=== PATIENT | female | born 1990 | race Two or more races ===

== ENCOUNTER 2016-08-13 12:02 | Emergency (ER) | payer MEDICAID ==
[~2016-08-13] VITALS: Ht 154.9 cm; Wt 67.1 kg
[~2016-08-13 12:02] MED LIST: NORPTMEDS CO
[2016-08-13 12:25] VITALS: BP 116/58
[2016-08-13] MEDS ORDERED: KETOROLAC TROMETH 60MG/2ML VIAL IM ONE (15:30)
== END 2016-08-13 16:06 | disposition home or self-care (01) ==
LOC: ER 12:15
DX: J01.10 Acute frontal sinusitis, unspecified (principal); Z87.440 Personal history of urinary (tract) infections
CPT/HCPCS: 96372; 99283; J1885

== ENCOUNTER 2016-08-27 11:28 | Emergency (ER) | payer MEDICAID ==
[~2016-08-27] VITALS: Ht 154.9 cm; Wt 68.0 kg
[2016-08-27 15:08] VITALS: BP 108/72
[2016-08-27] MEDS ORDERED: KETOROLAC TROMETH 60MG/2ML VIAL IM ONE (15:30)
== END 2016-08-27 16:02 | disposition home or self-care (01) ==
LOC: ER 11:28
DX: G44.209 Tension-type headache, unspecified, not intractable (principal)
CPT/HCPCS: 70450; 96372; 99284; J1885

== ENCOUNTER 2017-04-18 11:26 | Emergency (ER) | payer MEDICAID ==
[~2017-04-18] VITALS: Ht 154.9 cm; Wt 49.9 kg
[2017-04-18 12:26] VITALS: BP 118/74
== END 2017-04-18 14:29 | disposition home or self-care (01) ==
LOC: ER 11:26
DX: N64.4 Mastodynia (principal); Z79.899 Other long term (current) drug therapy; Z87.440 Personal history of urinary (tract) infections
CPT/HCPCS: 76642

== ENCOUNTER 2018-09-11 11:37 | Emergency (ER) | payer MEDICAID ==
[~2018-09-11] VITALS: Ht 154.9 cm; Wt 66.2 kg
[2018-09-11 12:30] LABS: Urine Bacteria NONE SEEN /hpf (None Seen); Urine Blood TRACE /uL (Negative); Urine Specific Gravity 1.023 (1.001-1.035); Urine WBC 4 /hpf (0 - 5)
[2018-09-11] MEDS ORDERED: KETOROLAC TROMETH 60MG/2ML VIAL IM ONE (15:45)
[2018-09-11] MEDS ORDERED: ONDANSETRON ODT 4 MG TAB PO ONE (15:45)
[2018-09-11 16:04] VITALS: BP 141/69
== END 2018-09-11 16:06 | disposition home or self-care (01) ==
LOC: ER 11:37
DX: N39.0 Urinary tract infection, site not specified (principal); Z87.11 Personal history of peptic ulcer disease; Z87.440 Personal history of urinary (tract) infections
CPT/HCPCS: 81001; 81025; 96372; 99283; J1885; Q0162

== ENCOUNTER 2019-06-12 12:06 | Emergency (ER) | payer MEDICAID ==
[2019-06-12 13:59] VITALS: BP 111/65
[2019-06-12] MEDS ORDERED: IBUPROFEN 800 MG TAB PO ONE (14:45)
[2019-06-12] MEDS ORDERED: KETOROLAC TROMETH 30 MG/ML 1ML VIAL IV ONE (14:45)
== END 2019-06-12 15:12 | disposition home or self-care (01) ==
LOC: ER 12:14
DX: K04.7 Periapical abscess without sinus (principal); Z87.440 Personal history of urinary (tract) infections

== ENCOUNTER 2021-06-16 18:08 | Emergency (ER) | payer MEDICAID ==
[~2021-06-16] VITALS: Ht 144.8 cm; Wt 75.3 kg
[2021-06-16 20:49] LABS: Urine Bacteria FEW /hpf (None Seen); Urine Blood TRACE /uL (Negative); Urine Specific Gravity 1.013 (1.001-1.035); Urine WBC 1 /hpf (0 - 5)
[2021-06-16 21:18] VITALS: BP 105/69
[2021-06-16] MEDS ORDERED: cefTRIAXone SOD 1,000 MG VL IM ONE (21:30)
[2021-06-16] MEDS ORDERED: KETOROLAC TROMETH 60MG/2ML VIAL IM ONE (21:30)
== END 2021-06-16 21:56 | disposition home or self-care (01) ==
LOC: ER 18:09
DX: N39.0 Urinary tract infection, site not specified (principal); E66.9 Obesity, unspecified; Z68.35 Body mass index [BMI] 35.0-35.9, adult
CPT/HCPCS: 81001; 96372; 99284; J0696; J1885

== ENCOUNTER 2022-09-11 15:55 | Emergency (ER) | payer MEDICAID ==
[~2022-09-11] VITALS: Ht 144.8 cm; Wt 81.0 kg
[2022-09-11 16:04] VITALS: BP 154/90
[2022-09-11] MEDS ORDERED: ONDANSETRON ODT 4 MG TAB PO ONE (16:15)
[2022-09-11] MEDS ORDERED: HYDROcodone-ACET 10/325MG TAB PO ONE (16:15)
[2022-09-11 16:22] LABS: Basophils # (auto) 0 10 ^3/uL (0-0.2); Basophils % (auto) 0.6 % (0.0-2.0); Eosinophils # (auto) 0.1 10 ^3/uL (0-0.8); Eosinophils % (auto) 1.2 % (0.0-7.0); Hematocrit 39.3 % (36.0-46.0); Hemoglobin 13.9 g/dL (12.2-16.2); Lymphocytes # (auto) 2.4 10 ^3/uL (0.4-5.4); Lymphocytes % (auto) 34.6 % (10.0-50.0); Mean Corpuscular Hemoglobin 29.9 pg (28.0-32.0); Mean Corpuscular Hgb Conc. 35.3 g/dL (32.0-36.0); Mean Corpuscular Volume 84.7 fL (80.0-100.0); Monocytes # (auto) 0.4 10 ^3/uL (0-1.3); Monocytes % (auto) 5.8 % (0.0-12.0); Neutrophils # (auto) 4.1 10 ^3/uL (1.6-8.6); Neutrophils % (auto) 57.8 % (37.0-80.0); Nucleated Red Blood Cells % 0.1 %; Red Blood Cells 4.64 10^6/uL (4.0-5.20); Red Cell Distribution Width 14.1 % (11.8-14.3)
[2022-09-11 16:43] LABS: Albumin 3.8 g/dL (3.4-5.0); BUN/Creatinine Ratio 21.8; Calcium 8.9 mg/dL (8.5-10.1); Potassium 3.5 mmol/L (3.5-5.1)
[2022-09-11 16:45] LABS: Bilirubin, Total 0.4 mg/dL (0.2-1.0); Total Protein 7.3 g/dL (6.4-8.2)
[2022-09-11 17:03] LABS: Urine Bacteria NONE SEEN /hpf (None Seen); Urine Blood 2+ /uL (Negative); Urine WBC 5 /hpf (0 - 5)
[2022-09-11] MEDS ORDERED: HYDR-4902 PO (21:21)
== END 2022-09-11 22:51 | disposition home or self-care (01) ==
LOC: ER 15:56
DX: R10.31 Right lower quadrant pain (principal); R10.2 Pelvic and perineal pain
CPT/HCPCS: 36415; 74176; 76830; 76856; 80053; 81001; 83690; 84702; 85025; 99284; Q0162

== ENCOUNTER 2025-04-02 14:13 | Inpatient (IN) | payer MEDICAID ==
[~2025-04-02] VITALS: Ht 144.8 cm; Wt 84.5 kg
[~2025-04-02 14:13] MED LIST changes: +HYDR-4902 PO
--- NOTE | 2025-04-02 14:53 | ED.PDOC ---
General HPI Comments 34y F who presents to the ED for chief complaint of flank pain. Pt states she was at urologist appt today with DR. RAGSDALE at and states she was told to come to the ED to be admitted for her kidney stones. Pt states she was told she is to have surgery for her kidney stones. Pt in the ED, states she has been having this pain for the past 2x days and went to [facility], on Tuesday and had CT scan showing R sided kidney stones and given outpatient referral for urologist today. Pt now in the ED, states she is having RLQ pain with associated back pain, rating the pain 8/10, constant, with no associated exacerbating or relieving factors. Pt in the ED, has noted BP of 147/88 with otherwise stable vitals in the ED. Chief Complaint: Urinary Time Seen by MD: 14:50 Primary Care Provider: [facility] Reviewed notes: Medications, Allergies Allergies: Coded Allergies: NO KNOWN ALLERGIES (Unverified , 06/09/13) Home Meds Active Scripts Hydrocodone-Acetaminophen (Hydrocodone Bitartrate/AC 5-325 mg) 1 Tab Tab, 1 TAB PO Q6HP PRN, #20 TAB Prov:GEN BLANCO PAC 09/11/22 Reported Medications No Reported Medication (NO REPORTED MEDICATION) Ea, 0 CO UNK, EA PATIENT HAS NO REPORTED MEDICATIONS 06/09/13 Information Source: Patient Mode of Arrival: Ambulatory Brought in by: self Severity: Moderate Timing: Days Duration: Since onset Prehospital treatment: None Onset: Spontaneous Symptoms: None History of: Kidney stone Location: Suprapubic, (R) Flank Modifying factors: None associated signs and symptoms: None Past Medical History PAST MEDICAL HISTORY: Kidney Stones, UTI'S Past Medical History (Other): adenomyosis Surgical History: Denies all surgeries CAT BREEDER History: No Pertinent CAT BREEDER History Family History Family History: Reviewed,noncontributory to illness, No family hx of DM Social History Smoker: Non-Smoker Alcohol: Denies ETOH Use Drugs: Denies Drug Use Lives In: Home Constitutional: denies: chills, diaphoresis, fatigue, fever, malaise, sweats, weakness, others EENTM: denies: blurred vision, double vision, ear bleeding, ear discharge, ear drainage, ear pain, ear ringing, eye pain, eye redness, hearing loss, mouth pain, mouth swelling, nasal discharge, nose bleeding, nose congestion, nose pain, photophobia, tearing, throat pain, throat swelling, voice changes, others Respiratory: denies: cough, hemoptysis, orthopnea, SOB at rest, shortness of breath, SOB with excertion, stridor, wheezing, others Cardiovascular: denies: chest pain, dizzy spells, diaphoresis, Dyspnea on exertion, edema, irregular heart beat, left arm pain, lightheadedness, palpitations, PND, syncope, others Gastrointestinal: denies: abdomen distended, abdominal pain, blood streaked bowels, constipated, diarrhea, dysphagia, difficulty swallowing, hematemesis, melena, nausea, poor appetite, poor fluid intake, rectal bleeding, rectal pain, vomiting, others Genitourinary: reports: flank pain; denies: abnormal vagina bleeding, burning, dyspareunia, dysuria, frequency, hematuria, incontinence, pain, , vagina discharge, urgency, others Neurological: denies: dizziness, fainting, headache, left sided numbness, left sided weakness, numbness, paresthesia, pre-existing deficit, right sided numbness, right sided weakness, seizure, speech problems, tingling, tremors, weakness, others Musculoskeletal: reports: back pain; denies: gout, joint pain, joint swelling, muscle pain, muscle stiffness, neck pain, others Integumetry: denies: bruises, change in color, change in hair/nails, dryness, laceration, lesions, lumps, rash, wounds, others Allergic/Immunocompromised: denies: Difficulty Healing, Frequent Infections, Hives, Itching, others Hematologic/Lymphatic: denies: anemia, blood clots, easy bleeding, easy bruising, swollen glands, others Endocrine: denies: excessive hunger, excessive sweating, excessive thirst, excessive urination, flushing, intolerance to cold, intolerance to heat, unexplained weight gain, unexplained weight loss, others Psychiatric: denies: anxiety, bipolar disorder, depression, hopeless, panic disorder, schizophrenia, sleepless, suicidal, others All Other Systems: Reviewed and Negative Physical Exam General Appearance: Moderate Distress, Obese HEENT: Normal ENT Inspection, Pharynx Normal, TMs Normal Neck: Full Range of Motion, Non-Tender, Normal, Normal Inspection Respiratory: Chest Non-Tender, Lungs Clear, No Accessory Muscle Use, No Respiratory Distress, Normal Breath Sounds Cardiovascular: No Edema, No JVD, No Murmur, No Gallop, Normal Peripheral Pulses, Regular Rate/Rhythm Breast Exam: Deferred Gastrointestinal: No Organomegaly, Non Tender, No Pulsatile Mass, Normal Bowel Sounds, Soft Genitalia: Deferred Pelvic: Deferred Rectal: Deferred Extremities: No calf tenderness, Normal capillary refill, Normal inspection, Normal range of motion, Non-tender, No pedal edema Musculoskeletal : Apperance: Normal Neurologic: Alert, personal secretary II-XII nml as Tested, No Motor Deficits, Normal Affect, Normal Mood, No Sensory Deficits Cerebellar Function: Normal Reflexes: Normal Skin: Dry, Normal Color, Warm Lymphatic: No Adenopathy Was a procedure done? Was a procedure done?: No Differential Diagnosis Kidney stone (Female): Cholelithiasis, Musculoskeletal pain, Pyelonephritis, Strain, Urolithiasis Urinary Problem (Female): Pyelonephritis X-Ray, Labs, Meds, VS Vital Signs Date Time Temp Pulse Resp B/P (MAP) Pulse Ox O2 Delivery O2 Flow Rate FiO2 04/02/25 14:59 78 20 117/74 04/02/25 14:56 74 18 117/76 (90) 100 04/02/25 14:56 74 18 97 Room Air 04/02/25 14:18 97.9 74 18 147/88 96 97.9 Lab Test 04/02/25 14:50 04/02/25 14:39 Range/Units White Blood Count 8.7 4.4-10.8 10^3/uL Red Blood Count 4.63 4.0-5.20 10^6/uL Hemoglobin 13.5 12.2-16.2 g/dL Hematocrit 39.7 36.0-46.0 % Mean Corpuscular Volume 85.8 80.0-100.0 fL Mean Corpuscular Hemoglobin 29.1 28.0-32.0 pg Mean Corpuscular Hemoglobin Concent 33.9 32.0-36.0 g/dL Red Cell Distribution Width 14.1 11.8-14.3 % Platelet Count 438 140-450 10^3/uL Mean Platelet Volume 6.7 L 6.9-10.8 fL Neutrophils (%) (Auto) 59.2 37.0-80.0 % Lymphocytes (%) (Auto) 34.0 10.0-50.0 % Monocytes (%) (Auto) 4.8 0.0-12.0 % Eosinophils (%) (Auto) 1.6 0.0-7.0 % Basophils (%) (Auto) 0.4 0.0-2.0 % Neutrophils # (Auto) 5.1 1.6-8.6 10 ^3/uL Lymphocytes # (Auto) 2.9 0.4-5.4 10 ^3/uL Monocytes # (Auto) 0.4 0-1.3 10 ^3/uL Eosinophils # (Auto) 0.1 0-0.8 10 ^3/uL Basophils # (Auto) 0 0-0.2 10 ^3/uL Nucleated Red Blood Cells 0.1 % Sodium Level 138 136-145 mmol/L Potassium Level 3.7 3.5-5.1 mmol/L Chloride Level 102 98-107 mmol/L Carbon Dioxide Level 29 20-31 mmol/L Anion Gap 7 5-15 Blood Urea Nitrogen 7 L 9-23 mg/dL Creatinine 0.63 0.550-1.02 mg/dL Glomerular Filtration Rate Calc 119 >90 mL/min BUN/Creatinine Ratio 11.1 10.0-20.0 Serum Glucose 110 H 74-106 mg/dL Calcium Level 9.2 8.7-10.4 mg/dL Urine Color Light-yellow Yellow Urine Clarity Clear Clear Urine pH 5.5 5.0-9.0 Urine Specific [place] 1.019 1.001-1.035 Urine Protein Negative Negative Urine Ketones Negative Negative Urine Blood Trace H Negative /uL Urine Nitrite Negative Negative Urine Bilirubin Negative Negative Urine Urobilinogen Normal Negative mg/dL Urine Leukocyte Esterase Trace Negative /uL Urine RBC 11 0 - 4 /hpf Urine Microscopic WBC 4 0-5 /HPF Urine Squamous Epithelial Cells Few <5 /hpf Urine Bacteria Few H None Seen /hpf Urine Glucose Normal Normal mg/dL Urine Test Negative Negative Current Medications Medications (Trade) Dose Ordered Sig/Parish Route Start Time Stop Time Status Last Admin Ondansetron HCl (Zofran) 4 mg ONCE ONCE IV 04/02/25 14:45 04/02/25 14:46 DC 04/02/25 15:01 Sodium Chloride 1,000 ml @ 1,000 mls/hr Q1H ONCE IVB 04/02/25 14:45 04/02/25 15:44 DC 04/02/25 15:01 Morphine Sulfate 4 mg ONCE ONCE IV 04/02/25 14:45 04/02/25 14:46 DC 04/02/25 14:59 IV Hep-Lock was established The patient was given a 1 L bolus of normal saline The patient was given Zofran 4 mg IV push for the vomiting The patient was given morphine 4 mg IV push with the pain The urine test is positive for a UTI The patient has a CBC is within normal limits The chemistry panel is within normal limits The CAT scan of the abdomen and pelvis shows: IMPRESSION: Limited evaluation without contrast. Nonobstructing right renal calculi up to 2 mm. Gastric distention. Hepatic steatosis. Bilateral pulmonary ground-glass nodules/ nodules up to 1.8 cm as described above which could be secondary to infectious, inflammatory, neoplastic etiology. Recommend follow-up per Fleischner society criteria guidelines. Colonic diverticular disease. At this time the patient will be admitted to the hospitalist. We have consulted with Dr. Landry who is a urologist in the patient is being admitted Images Reviewed?: Images reviewed and evaluated by me Time of 1ST Reevaluation: 15:30 Reevaluation 1ST: Unchanged Patient Education/Counseling: Diagnosis, Treatment Family Education/Counseling: No Family Present SEPSIS Sepsis Screen Date sepsis recognized/suspect: Apr 02, 2025 Time Sepsis recognized/suspect: 1423 Recent Procedure: No On Antibiotic Therapy: No Respiratory Rate >20: No Heart Rate >90: No Temp<36 C (96.8 F) or >38.3 C: No SBP <90 or MAP <65 mmHG: No New Acute Mental Status Change: No Is the patient on CPAP, BIPAP,: No Physician Orders Ct Ab Pel Wo Con-No Oral Or Iv (04/02/25 14:39) Heplock Iv (04/02/25 14:39) Vital Signs Date Time Temp Pulse Resp B/P (MAP) Pulse Ox O2 Delivery O2 Flow Rate FiO2 04/02/25 14:59 78 20 117/74 04/02/25 14:56 74 18 117/76 (90) 100 04/02/25 14:56 74 18 97 Room Air 04/02/25 14:18 97.9 74 18 147/88 96 97.9 Laboratory Tests Test 04/02/25 14:50 White Blood Count 8.7 10^3/uL (4.4-10.8) Medications Medications Dose Ordered Sig/Parish Route Start Time Stop Time Status Last Admin Dose Admin Morphine Sulfate 4 mg ONCE ONCE IV 04/02/25 14:45 04/02/25 14:46 DC 04/02/25 14:59 Ondansetron HCl 4 mg ONCE ONCE IV 04/02/25 14:45 04/02/25 14:46 DC 04/02/25 15:01 Sodium Chloride 1,000 ml @ 1,000 mls/hr Q1H ONCE IVB 04/02/25 14:45 04/02/25 15:44 DC 04/02/25 15:01 Departure 1 Departure Time of Disposition: 18:45 Impression: Primary Impression: UTI (urinary tract infection) Qualified Codes: N30.01 - Acute cystitis with hematuria Additional Impression: Right flank pain Disposition: ADMITTED INPATIENT Admit to: Med Surg Condition: Fair Critical Care Note Critical Care Time?: No Stability Stability form required: Yes Unstable for transfer: ED Physician Assesment (Clinical assesment) Heart Score Heart Score: Heart Score Response (Comments) Value History N/A 0 EKG N/A 0 Age N/A 0 Risk Factors N/A 0 Troponin N/A 0 Total 0 I personally scribed for ALONZO CAMPOS MD ([email or web address]) on 04/02/25 at 14:52. Electronically submitted by Beatris COVINGTON). ALONZO CAMPOS MD Apr 02, 2025 14:52
[2025-04-02 14:58] LABS: Hematocrit 39.7 % (36.0-46.0); Hemoglobin 13.5 g/dL (12.2-16.2); Mean Corpuscular Hemoglobin 29.1 pg (28.0-32.0); Mean Corpuscular Volume 85.8 fL (80.0-100.0); Nucleated Red Blood Cells % 0.1 %
[2025-04-02] MEDS: MORPHINE SULFATE 4 MG/ML SYR/VIAL IV ONE (14:59)
[2025-04-02] MEDS: SODIUM CHLORIDE 0.9% 1,000 ML IVB ONE (15:01)
[2025-04-02] MEDS: ONDANSETRON HCL 4 MG/2 ML VIAL IV ONE (15:01)
[2025-04-02 15:08] LABS: Chloride 102 mmol/L (98-107); Potassium 3.7 mmol/L (3.5-5.1); Sodium 138 mmol/L (136-145)
[2025-04-02 15:09] LABS: Anion Gap 7 (5-15); Calcium 9.2 mg/dL (8.7-10.4); Carbon Dioxide 29 mmol/L (20-31)
[2025-04-02 15:14] LABS: BUN/Creatinine Ratio 11.1 (10.0-20.0)
[2025-04-02 15:15] LABS: Blood Urea Nitrogen 7 mg/dL (9-23); Glucose 110 mg/dL (74-106)
[2025-04-02 17:15] LABS: Urine Protein, UAD Negative (Negative)
--- NOTE | 2025-04-02 18:18 | DVH ---
Indication: right flank pain Technique: CT axial images of the abdomen and pelvis are obtained without contrast. Coronal and sagit surya reformats were obtained. Radiation Dose Information: CTDI volume is 18 mGy. Dose-length product is 929 mGy*cm Comparison: CT CT AB PEL WO CON-NO ORAL OR IV on DOS: 09/11/22 FINDINGS: There is limited interpretation of the abdomen and pelvis without administration of intravenous contr ast. Lung bases demonstrate bilateral pulmonary ground-glass nodules including 9 mm right lower lobe groun d-glass opacity, 11 mm right lower lobe ground-glass opacity, 1.8 cm right lower lobe sub solid nodul e, left lower lobe ground-glass nodule measuring 5 mm. Adrenal glands, spleen, pancreas unremarkable in shape. Hepatic steatosis. No CT evidence for cholel ithiasis. No hydronephrosis. Nonobstructing right renal calculi 2 mm. No left hydronephrosis/nephrolithiasis. Gastric distention. Small bowel loops normal in caliber. Moderate volume stool in the colon. Normal appendix. Bladder is partially distended. No free pelvic fluid. No inguinal lymphadenopathy. No aggressive osseous process. There is mild thoracolumbar degenerative disc disease. IMPRESSION: Limited evaluation without contrast. Nonobstructing right renal calculi up to 2 mm. Gastric distention. Hepatic steatosis. Bilateral pulmonary ground-glass nodules/ nodules up to 1.8 cm as described above which could be seco ndary to infectious, inflammatory, neoplastic etiology. Recommend follow-up per Fleischner society c r[place] guidelines. Colonic diverticular disease. Other findings as described.
--- NOTE | 2025-04-02 19:50 | DVHINCON2 ---
Date of service: Apr 02, [address] Galarza Reason for Consultation Right flank pain History of Present Illness Patient was seen in Urology Clinic earlier today at the request of Dr. Galarza for severe right-sided flank pain. She was evaluated Tuesday at [facility] for right-sided flank pain and was told to have a ureteral calculus that she was passing. She indicated her pain to be a level eight on a scale of 1-10. Therefore I recommended that she be evaluated through emergency room and be admitted for definitive urological management. 34y F who presents to the ED for chief complaint of flank pain. Pt states she was at urologist appt today with DR. RAGSDALE at and states she was told to come to the ED to be admitted for her kidney stones. Pt states she was told she is to have surgery for her kidney stones. Pt in the ED, states she has been having this pain for the past 2x days and went to [facility], on Tuesday and had CT scan showing R sided kidney stones and given outpatient referral for urologist today. Pt now in the ED, states she is having RLQ pain with associated back pain, rating the pain 8/10, constant, with no associated exacerbating or relieving factors. Pt in the ED, has noted BP of 147/88 with otherwise stable vitals in the ED. Chief Complaint: Urinary Primary Care Provider: [facility] Reviewed notes: Medications, Allergies Allergies: Coded Allergies: NO KNOWN ALLERGIES (Unverified , 06/09/13) Home Meds Active Scripts Hydrocodone-Acetaminophen (Hydrocodone Bitartrate/AC 5-325 mg) 1 Tab Tab, 1 TAB PO Q6HP PRN, #20 TAB Prov:GEN BLANCO PAC 09/11/22 Reported Medications No Reported Medication (NO REPORTED MEDICATION) Ea, 0 CO UNK, EA PATIENT HAS NO REPORTED MEDICATIONS 06/09/13 Information Source: Patient Mode of Arrival: Ambulatory Brought in by: self Severity: Moderate Timing: Days Duration: Since onset Prehospital treatment: None Onset: Spontaneous Symptoms: None History of: Kidney stone Location: Suprapubic, (R) Flank Modifying factors: None associated signs and symptoms: None Past Medical History Kidney stones Endometriosis Past Surgical History Laparoscopy Allergies: Coded Allergies: NO KNOWN ALLERGIES (Unverified , 06/09/13) Home Meds Active Scripts Hydrocodone-Acetaminophen (Hydrocodone Bitartrate/AC 5-325 mg) 1 Tab Tab, 1 TAB PO Q6HP PRN, #20 TAB Prov:GEN BLANCO PAC 09/11/22 Reported Medications No Reported Medication (NO REPORTED MEDICATION) Ea, 0 CO UNK, EA PATIENT HAS NO REPORTED MEDICATIONS 06/09/13 Review of Systems Constitutional: denies: chills, diaphoresis, fatigue, fever, malaise, sweats, weakness, others EENTM: denies: blurred vision, double vision, ear bleeding, ear discharge, ear drainage, ear pain, ear ringing, eye pain, eye redness, hearing loss, mouth pain, mouth swelling, nasal discharge, nose bleeding, nose congestion, nose pain, photophobia, tearing, throat pain, throat swelling, voice changes, others Respiratory: denies: cough, hemoptysis, orthopnea, SOB at rest, shortness of breath, SOB with excertion, stridor, wheezing, others Cardiovascular: denies: chest pain, dizzy spells, diaphoresis, Dyspnea on exertion, edema, irregular heart beat, left arm pain, lightheadedness, palpitations, PND, syncope, others Gastrointestinal: denies: abdomen distended, abdominal pain, blood streaked bowels, constipated, diarrhea, dysphagia, difficulty swallowing, hematemesis, melena, nausea, poor appetite, poor fluid intake, rectal bleeding, rectal pain, vomiting, others Genitourinary: reports: flank pain; denies: abnormal vagina bleeding, burning, dyspareunia, dysuria, frequency, hematuria, incontinence, pain, , vagina discharge, urgency, others Neurological: denies: dizziness, fainting, headache, left sided numbness, left sided weakness, numbness, paresthesia, pre-existing deficit, right sided numbness, right sided weakness, seizure, speech problems, tingling, tremors, weakness, others Musculoskeletal: reports: back pain; denies: gout, joint pain, joint swelling, muscle pain, muscle stiffness, neck pain, others Integumetry: denies: bruises, change in color, change in hair/nails, dryness, laceration, lesions, lumps, rash, wounds, others Allergic/Immunocompromised: denies: Difficulty Healing, Frequent Infections, Hives, Itching, others Hematologic/Lymphatic: denies: anemia, blood clots, easy bleeding, easy bruising, swollen glands, others Endocrine: denies: excessive hunger, excessive sweating, excessive thirst, excessive urination, flushing, intolerance to cold, intolerance to heat, unexplained weight gain, unexplained weight loss, others Psychiatric: denies: anxiety, bipolar disorder, depression, hopeless, panic disorder, schizophrenia, sleepless, suicidal, others All Other Systems: Reviewed and Negative Vital Signs Vital Signs Date Time Temp Pulse Resp B/P (MAP) Pulse Ox O2 Delivery O2 Flow Rate FiO2 04/02/25 14:59 78 20 117/74 04/02/25 14:56 100 04/02/25 14:56 Room Air 04/02/25 14:18 97.9 97.9 Physical Exam General Appearance: Moderate Distress, Obese HEENT: Normal ENT Inspection, Pharynx Normal, TMs Normal Neck: Full Range of Motion, Non-Tender, Normal, Normal Inspection Respiratory: Chest Non-Tender, Lungs Clear, No Accessory Muscle Use, No Respiratory Distress, Normal Breath Sounds Cardiovascular: No Edema, No JVD, No Murmur, No Gallop, Normal Peripheral Pulses, Regular Rate/Rhythm Breast Exam: Deferred Gastrointestinal: No Organomegaly, Non Tender, No Pulsatile Mass, Normal Bowel Sounds, Soft Genitalia: Deferred Pelvic: Deferred Rectal: Deferred Extremities: No calf tenderness, Normal capillary refill, Normal inspection, Normal range of motion, Non-tender, No pedal edema Musculoskeletal : Apperance: Normal Neurologic: Alert, staff midwife/apprenticeship director II-XII nml as Tested, No Motor Deficits, Normal Affect, Normal Mood, No Sensory Deficits Cerebellar Function: Normal Reflexes: Normal Skin: Dry, Normal Color, Warm Lymphatic: No Adenopathy Labs/Diagnostic Data Labs Test 04/02/25 14:50 04/02/25 14:39 Range/Units White Blood Count 8.7 4.4-10.8 10^3/uL Red Blood Count 4.63 4.0-5.20 10^6/uL Hemoglobin 13.5 12.2-16.2 g/dL Hematocrit 39.7 36.0-46.0 % Mean Corpuscular Volume 85.8 80.0-100.0 fL Mean Corpuscular Hemoglobin 29.1 28.0-32.0 pg Mean Corpuscular Hemoglobin Concent 33.9 32.0-36.0 g/dL Red Cell Distribution Width 14.1 11.8-14.3 % Platelet Count 438 140-450 10^3/uL Mean Platelet Volume 6.7 L 6.9-10.8 fL Neutrophils (%) (Auto) 59.2 37.0-80.0 % Lymphocytes (%) (Auto) 34.0 10.0-50.0 % Monocytes (%) (Auto) 4.8 0.0-12.0 % Eosinophils (%) (Auto) 1.6 0.0-7.0 % Basophils (%) (Auto) 0.4 0.0-2.0 % Neutrophils # (Auto) 5.1 1.6-8.6 10 ^3/uL Lymphocytes # (Auto) 2.9 0.4-5.4 10 ^3/uL Monocytes # (Auto) 0.4 0-1.3 10 ^3/uL Eosinophils # (Auto) 0.1 0-0.8 10 ^3/uL Basophils # (Auto) 0 0-0.2 10 ^3/uL Nucleated Red Blood Cells 0.1 % Sodium Level 138 136-145 mmol/L Potassium Level 3.7 3.5-5.1 mmol/L Chloride Level 102 98-107 mmol/L Carbon Dioxide Level 29 20-31 mmol/L Anion Gap 7 5-15 Blood Urea Nitrogen 7 L 9-23 mg/dL Creatinine 0.63 0.550-1.02 mg/dL Glomerular Filtration Rate Calc 119 >90 mL/min BUN/Creatinine Ratio 11.1 10.0-20.0 Serum Glucose 110 H 74-106 mg/dL Calcium Level 9.2 8.7-10.4 mg/dL Urine Color Light-yellow Yellow Urine Clarity Clear Clear Urine pH 5.5 5.0-9.0 Urine Specific [place] 1.019 1.001-1.035 Urine Protein Negative Negative Urine Ketones Negative Negative Urine Blood Trace H Negative /uL Urine Nitrite Negative Negative Urine Bilirubin Negative Negative Urine Urobilinogen Normal Negative mg/dL Urine Leukocyte Esterase Trace Negative /uL Urine RBC 11 0 - 4 /hpf Urine Microscopic WBC 4 0-5 /HPF Urine Squamous Epithelial Cells Few <5 /hpf Urine Bacteria Few H None Seen /hpf Urine Glucose Normal Normal mg/dL Urine Test Negative Negative PATIENT: ARACELI MURILLO ACCT: [id number] UNIT: [id number] : 1990 LOC: ER ROOM / BED: / AGE / SEX: 34 / F ADM STATUS: REG ER SERVICE [id number] ORDERING PHYSICIAN: ALONZO CAMPOS MD PROCEDURE(s): ABPL - CT AB PEL WO CON-NO ORAL OR IV REASON: right flank pain ORDER NUMBER(s): [id number], ACCESSION NUMBER(s): [id number] Indication: right flank pain Technique: CT axial images of the abdomen and pelvis are obtained without contrast. Coronal and sagittal reformats were obtained. Radiation Dose Information: CTDI volume is 18 mGy. Dose-length product is 929 mGy*cm Comparison: CT CT AB PEL WO CON-NO ORAL OR IV on DOS: 09/11/22 FINDINGS: There is limited interpretation of the abdomen and pelvis without administration of intravenous contrast. Lung bases demonstrate bilateral pulmonary ground-glass nodules including 9 mm right lower lobe ground-glass opacity, 11 mm right lower lobe ground-glass opacity, 1.8 cm right lower lobe sub solid nodule, left lower lobe ground-glass nodule measuring 5 mm. Adrenal glands, spleen, pancreas unremarkable in shape. Hepatic steatosis. No CT evidence for cholelithiasis. No hydronephrosis. Nonobstructing right renal calculi 2 mm. No left hydronephrosis/nephrolithiasis. Gastric distention. Small bowel loops normal in caliber. Moderate volume stool in the colon. Normal appendix. Bladder is partially distended. No free pelvic fluid. No inguinal lymphadenopathy. No aggressive osseous process. There is mild thoracolumbar degenerative disc disease. IMPRESSION: Limited evaluation without contrast. Nonobstructing right renal calculi up to 2 mm. Gastric distention. Hepatic steatosis. Bilateral pulmonary ground-glass nodules/ nodules up to 1.8 cm as described above which could be secondary to infectious, inflammatory, neoplastic etiology. Recommend follow-up per Fleischner society criteria guidelines. Colonic diverticular disease. Other findings as described. ATED BY: MILDRED MONTANEZ MD DICTATED DATE/TIME: 04/02/251818 SIGNED BY: MILDRED MONTANEZ MD SIGNED DATE/TIME: 04/02/251818 CC: Assessment 2 mm nonobstructing right nephrolithiasis Right ureteral calculus likely have passed Right flank pain Microhematuria Plan/Recommendation We will obtain CT urogram for definitive diagnosis Right-sided ESWL to be arranged for 04/04/2025 Plan discussed with: Patient, Other MAXIMO RAGSDALE MD Apr 02, 2025 19:50
[2025-04-02] MEDS ORDERED: IOHEXOL 300 MG/ML 100ML BOTTLE IJ ONE (20:43)
--- NOTE | 2025-04-02 21:18 | DVH ---
Exam: CT CT AB PEL WITH IV CON ONLY History: Right flank pain Comparison Study: 09/11/2022 TECHNIQUE: Multidetector CT of the abdomen and pelvis with IV contrast. Axial, coronal and sagittal m ultiplanar reformats were obtained from the axial data set by the technologist. Radiation Dose Information: CT Dose: CTDI volume is 18.53 mGy. Dose-length product is 3.92 mGy*cm FINDINGS: Patchy right basilar opacity. Partially visualized heart is unremarkable. Mild hepatomegaly. Otherwise, liver, spleen, gallbladder, pancreas and adrenal glands unremarkable. Nonobstructing right renal calculi measuring up to 2 mm. Otherwise, kidneys, ureters and urinary blad ramiro unremarkable. Uterus and adnexa are unremarkable. Stomach is filled with ingested material mildly distended. Small bowel loops are unremarkable. Appen susie is unremarkable. Single diverticulum of the distal transverse colon and sigmoid without diverticu litis. Otherwise, the large bowel is unremarkable. Small to moderate amount of fecal material within the colon. No evidence of intraperitoneal free air or free fluid. No evidence of aortic aneurysm or dissection. No significant lymphadenopathy. The soft tissues are unremarkable. Sclerotic focus over the right femoral head and left L2 vertebral body which may represent small bone islands IMPRESSION: No evidence of acute abdominopelvic abnormalities. Nonobstructing right renal calculi. Otherwise, the kidneys are unremarkable. Mild hepatomegaly. Patchy right basilar opacity which may represent atelectasis / infectious process.
--- NOTE | 2025-04-02 22:54 | DVHHPRES ---
History of Present Illness Resident Creating Document: SANDIE RICH RESIDENT History of Present Illness History of Present Illness (HPI): Sukhjinder Mcknight is a 34-year-old female with a past medical history significant for adenomyosis and gastroesophageal reflux disease (GERD) presented with complaints of severe right flank pain. She described the pain as sharp, continuous, and radiating to her thighs and buttocks, rating it 9 out of 10 in intensity. The pain is aggravated by lying down and she reports no alleviating factors. The patient stated that she visited [employer] on Tuesday due to the right flank pain and associated headache. Imaging performed at that time revealed ureterolithiasis, and she was subsequently referred to Dr. Cohen for further evaluation. Earlier today, she visited Dr. Corbin clinic, where she was advised to proceed to the emergency department for admission and surgical management. Past Medical History (PMH): adenomyosis and gastroesophageal reflux disease (GERD) Past Surgical History (PSH): Laparoscopic surgery for adenomyosis Family history (FH): No relevant family history EtOH: Denies alcohol use Smoking /Vaping: Patient denies smoking Recreational Drugs: Denies recreational drug use Residence: Lives with Home Medications: None Allergies: No known allergies PCP: [facility] Specialist relevant to admission: Urology Review of Systems Review of Systems General: patient denies fever, fatigue, weaknes, sweating, any recent changes in appetite and weight HEENT: No visiual changes, hearing loss, tinnitus, nasal congestion and discharge, and sore throat. Complains of headache Cardiovascular: Denies chest pain, palpitations, dyspnea on exertion, orthopnea, or claudication. Respiratory: No cough, and wheezing. Gastrointestinal: Complains of right flank pain Genitourinary: No dysuria, hematuria, discharge, frequency, urgency, nocturia, incontinence, and urinary retention. Endocrine: No heat or cold intolerance, polydipsia, polyuria, and polyphagia. Neurological: No dizziness, extremity weakness and numbness, tremors, gait disturbance, seizures, and memory impairment. Psychiatric: Denies depression, anxiety,or insomnia. Musculoskeletal: Denies neck pain, stiffness and swelling, back pain, muscle weakness, joint pain, stiffness, swelling, or limited range of motion. Skin: No rashes, itching, skin lesion, changes in hair, nail, skin texture and breast. Hematologic/Lymphatic: Denies easy bruising, bleeding tendencies, or lymph node enlargement. Allergies: Coded Allergies: NO KNOWN ALLERGIES (Unverified , 06/09/13) Medications Current Medications Medications Dose Ordered Sig/Parish Route Start Time Stop Time Status Last Admin Dose Admin Ondansetron HCl 4 mg Q4HP PRN IV 04/02/25 22:30 Exam Vital Signs Vital Signs Date Time Temp Pulse Resp B/P (MAP) Pulse Ox O2 Delivery O2 Flow Rate FiO2 04/02/25 14:59 78 20 117/74 04/02/25 14:56 100 04/02/25 14:56 Room Air 04/02/25 14:18 97.9 97.9 Exam General Appearance: Alert, Oriented X3, Cooperative, No acute distress HEENT: Atraumatic, PERRLA, EOMI, Mucous membrane moist/pink Respiratory: Clear to auscultation, Normal air movement Cardiovascular: Regular rate, Normal S1, Normal S2, No murmurs, no chest wall t enderness Abdominal: Pain in the right lumbar and right iliac areas. Extremities: No clubbing, No cyanosis, No edema, Normal pulses, No tenderness/swelling Skin: No rashes, No breakdown, No significant lesion Neuro: Normal gait, Normal speech, Strength at 5/5 X4 ext, Normal tone, Sensation intact, Cranial nerves 3-12 NL, Reflexes 2+ Psych/Mental Status: Mental status NL, Mood NL Labs/Xrays Labs Test 04/02/25 14:50 04/02/25 14:39 Range/Units White Blood Count 8.7 4.4-10.8 10^3/uL Red Blood Count 4.63 4.0-5.20 10^6/uL Hemoglobin 13.5 12.2-16.2 g/dL Hematocrit 39.7 36.0-46.0 % Mean Corpuscular Volume 85.8 80.0-100.0 fL Mean Corpuscular Hemoglobin 29.1 28.0-32.0 pg Mean Corpuscular Hemoglobin Concent 33.9 32.0-36.0 g/dL Red Cell Distribution Width 14.1 11.8-14.3 % Platelet Count 438 140-450 10^3/uL Mean Platelet Volume 6.7 L 6.9-10.8 fL Neutrophils (%) (Auto) 59.2 37.0-80.0 % Lymphocytes (%) (Auto) 34.0 10.0-50.0 % Monocytes (%) (Auto) 4.8 0.0-12.0 % Eosinophils (%) (Auto) 1.6 0.0-7.0 % Basophils (%) (Auto) 0.4 0.0-2.0 % Neutrophils # (Auto) 5.1 1.6-8.6 10 ^3/uL Lymphocytes # (Auto) 2.9 0.4-5.4 10 ^3/uL Monocytes # (Auto) 0.4 0-1.3 10 ^3/uL Eosinophils # (Auto) 0.1 0-0.8 10 ^3/uL Basophils # (Auto) 0 0-0.2 10 ^3/uL Nucleated Red Blood Cells 0.1 % Sodium Level 138 136-145 mmol/L Potassium Level 3.7 3.5-5.1 mmol/L Chloride Level 102 98-107 mmol/L Carbon Dioxide Level 29 20-31 mmol/L Anion Gap 7 5-15 Blood Urea Nitrogen 7 L 9-23 mg/dL Creatinine 0.63 0.550-1.02 mg/dL Glomerular Filtration Rate Calc 119 >90 mL/min BUN/Creatinine Ratio 11.1 10.0-20.0 Serum Glucose 110 H 74-106 mg/dL Calcium Level 9.2 8.7-10.4 mg/dL Urine Color Light-yellow Yellow Urine Clarity Clear Clear Urine pH 5.5 5.0-9.0 Urine Specific [place] 1.019 1.001-1.035 Urine Protein Negative Negative Urine Ketones Negative Negative Urine Blood Trace H Negative /uL Urine Nitrite Negative Negative Urine Bilirubin Negative Negative Urine Urobilinogen Normal Negative mg/dL Urine Leukocyte Esterase Trace Negative /uL Urine RBC 11 0 - 4 /hpf Urine Microscopic WBC 4 0-5 /HPF Urine Squamous Epithelial Cells Few <5 /hpf Urine Bacteria Few H None Seen /hpf Urine Glucose Normal Normal mg/dL Urine Test Negative Negative SEPSIS Sepsis Screen Date sepsis recognized/suspect: Apr 02, 2025 Time Sepsis recognized/suspect: 1423 Recent Procedure: No On Antibiotic Therapy: No Respiratory Rate >20: No Heart Rate >90: No Temp<36 C (96.8 F) or >38.3 C: No SBP <90 or MAP <65 mmHG: No New Acute Mental Status Change: No Is the patient on CPAP, BIPAP,: No Physician Orders Ct Ab Pel With Iv Con Only (04/02/25 19:50) Obtain Consent For: (04/02/25 19:58) Obtain Consent For Anesthesia (04/02/25 19:58) Admit (04/02/25 22:29) Allergies (04/02/25 22:29) Code Status (04/02/25 22:29) Ondansetron Hcl (Zofran) (04/02/25 22:30) Complete Blood Count (04/03/25 04:00) Comprehensive Metabolic Panel (04/03/25 04:00) Npo (Nothing By Mouth) Diet (04/03/25 Breakfast) Condition: Fair (04/02/25 22:29) Vital Signs Date Time Temp Pulse Resp B/P (MAP) Pulse Ox O2 Delivery O2 Flow Rate FiO2 04/02/25 14:59 78 20 117/74 04/02/25 14:56 74 18 117/76 (90) 100 04/02/25 14:56 74 18 97 Room Air Laboratory Tests Test 04/02/25 14:50 White Blood Count 8.7 10^3/uL (4.4-10.8) Medications Medications Dose Ordered Sig/Parish Route Start Time Stop Time Status Last Admin Dose Admin Morphine Sulfate 4 mg ONCE ONCE IV 04/02/25 14:45 04/02/25 14:46 DC 04/02/25 14:59 4 MG Ondansetron HCl 4 mg ONCE ONCE IV 04/02/25 14:45 04/02/25 14:46 DC 04/02/25 15:01 4 MG Sodium Chloride 1,000 ml @ 1,000 mls/hr Q1H ONCE IVB 04/02/25 14:45 04/02/25 15:44 DC 04/02/25 15:01 1,000 MLS/HR Assessment/Plan Assessment/Plan Assessment and plan # Ureterolithiasis - Urology consult - Patient is scheduled to undergo surgery tomorrow - Toradol prn plus Protonix - IV fluids - Chest x-ray, PT INR for preop evaluation # Complicated UTI - IV ceftriaxone - Urine culture - IV fluids # GERD - IV Protonix # Diverticulosis, colonic - outpatient follow-up with PCP on discharge # History of adenomyosis - Outpatient follow-up with PCP on discharge PUD prophylaxis: protonix 40mg DVT prophylaxis: brisk movement. Barriers to discharge: Medical diagnosis and management in progress. Patient lives with family. Independent for ADL. PCP: [facility] Specialist Relevent To Admission: Dr. Cohen, urology Case discussed with Dr. Grady. Code Status: Full Code. Complex patient care discussion needed. Spend total 35 minutes for bedside assessment, case discussion and management. Plan discussed with: Patient, Spouse My Orders Orders - SANDIE RICH Procedure Category Date Status Time Admit ADMIT 04/02/25 Transmitted 22:29 Allergies IVANNA 04/02/25 In Process 22:29 Code Status CODE 04/02/25 Transmitted 22:29 Ondansetron Hcl PHA 04/02/25 In Process (Zofran) 22:30 Complete Blood Count LAB 04/03/25 Verified 04:00 Comprehensive LAB 04/03/25 Verified Metabolic Panel 04:00 Npo (Nothing By DIET 04/03/25 Transmitted Mouth) Diet Breakfast Condition: Fair IVANNA 04/02/25 In Process 22:29 Date of Service: Apr 02, 2025 Billing Provider: EDWARD GRADY MD Common Visit Codes: [id number] INP/OBS CARE (HIGH) Secondary Visit Codes: [id number] CARE PLAN 30 MINUTES SANDIE RICH RESIDENT Apr 02, 2025 22:54
[2025-04-03 03:06] VITALS: PULSE 72; RESP 18; O2SAT 96
--- NOTE | 2025-04-03 03:18 | DVH ---
CHEST RADIOGRAPH Indication: preop Technique: Single frontal view of the chest was obtained COMPARISON: None FINDINGS: Lines and Tubes: None Lungs: Clear Pleura: No effusion. No pneumothorax. Cardiomediastinal contours: Unremarkable Bones: Unremarkable IMPRESSION: 1. No acute disease.
[2025-04-03 03:41] VITALS: BP 110/62; PULSE 68; RESP 18; TEMP 97.6; O2SAT 99
[2025-04-03] MEDS: PANTOPRAZOLE 40 MG/10 ML VIAL INJ IV ONE (03:56)
[2025-04-03] MEDS: TAMSULOSIN HYDROCHLORIDE 0.4 MG CAP PO ONE (04:03)
[2025-04-03] MEDS: SODIUM CHLORIDE 0.9% 1,000 ML IV SCH (04:04)
[2025-04-03] MEDS: KETOROLAC TROMETH 30 MG/ML 1ML VIAL IV PRN (04:12)
[2025-04-03 08:32] LABS: Hematocrit 36.9 % (36.0-46.0); Hemoglobin 12.8 g/dL (12.2-16.2); Mean Corpuscular Hemoglobin 29.7 pg (28.0-32.0); Mean Corpuscular Volume 85.5 fL (80.0-100.0); Nucleated Red Blood Cells % 0.1 %
[2025-04-03 08:37] LABS: INR 0.99 (0.9-1.15); Partial Thromboplastin Time 32.0 SEC (24.5-34.5); Prothrombin Time 10.5 sec (9.3-11.8)
[2025-04-03 08:45] LABS: Alanine Aminotransferase 22 U/L (7-40); Albumin 3.9 g/dL (3.2-4.8); Alkaline Phosphatase 85 U/L (46-116); Anion Gap 10 (5-15); BUN/Creatinine Ratio 13.0 (10.0-20.0); Carbon Dioxide 24 mmol/L (20-31); Chloride 106 mmol/L (98-107); Potassium 3.9 mmol/L (3.5-5.1); Sodium 140 mmol/L (136-145); Total Protein 6.6 g/dL (5.7-8.2)
[2025-04-03 08:48] LABS: Bilirubin, Total 0.2 mg/dL (0.2-1.0); Blood Urea Nitrogen 6 mg/dL (9-23); Calcium 8.6 mg/dL (8.7-10.4); Glucose 108 mg/dL (74-106)
[2025-04-03 10:00] VITALS: BP 93/56; PULSE 68; RESP 17; TEMP 98; O2SAT 96
[2025-04-03 12:51] VITALS: BP 109/60; PULSE 70; RESP 16; TEMP 98.1; O2SAT 98
[2025-04-03 17:00] VITALS: BP 114/78; PULSE 81; RESP 16; TEMP 98.2; O2SAT 97
[2025-04-03] MEDS: TAMSULOSIN HYDROCHLORIDE 0.4 MG CAP PO SCH (18:03)
[2025-04-03 21:07] VITALS: BP 130/51; PULSE 68; RESP 18; TEMP 98.3; O2SAT 98
[2025-04-03] MEDS ORDERED: HYDROcodone-ACET 10/325MG TAB PO ONE (22:15)
[2025-04-04] VITALS (9 sets, daily range): BP systolic 111–142; BP diastolic 73–90; PULSE 65–114; RESP 17–20; TEMP 97.9–98.8; O2SAT 89–98
[2025-04-04] MEDS: PANTOPRAZOLE 40 MG/10 ML VIAL INJ IV SCH (10:00)
[2025-04-04] MEDS ORDERED: ONDANSETRON HCL 4 MG/2 ML VIAL ONE (10:10)
[2025-04-04] MEDS ORDERED: KETOROLAC TROMETH 30 MG/ML 1ML VIAL ONE (10:10)
[2025-04-04] MEDS ORDERED: LIDOCAINE 2% (LOCAL ANESTH.) PF 5ml SDV ONE (10:10)
[2025-04-04] MEDS ORDERED: GLYCOPYRROLATE 0.2 MG/ML 1ML VIAL ONE (10:10)
[2025-04-04] MEDS ORDERED: PROPOFOL 10 MG/ML 20 ML IV ONE (10:10)
[2025-04-04] MEDS: CIPROFLOXACIN 400MG/200ML 200 ML IV ONE (10:17)
[2025-04-04] MEDS ORDERED: IOHEXOL 300 MG/ML 100ML BOTTLE IJ ONE ×2 (10:39→11:02)
[2025-04-04] MEDS ORDERED: LIDOCAINE HCL 2% TOP JELLY 5ML TOP ONE (10:54)
--- NOTE | 2025-04-04 11:25 | DVHNC2 ---
Procedure - OPERATIVE REPORT Pre-op. Diagnosis: Renal Stones, 2mm and 3 mm right lower pole Post-op. Diagnosis: Same as pre-op diagnosis Operation: Extracorporeal Shockwave Lithotripsy Anesthesia: General Indications: Patient was found to have symptomatic Urolithiasis. Patient is here to undergo ESWL therapy. Informed Consent: The procedure was explained to the patient. It's risks include but not limited to infection, bleeding, and damage to the kidney. Patient fully understood and signed the consent. Other options such as watchful waiting, Ureteroscopy, Percutaneous surgery and open surgery were also discussed. Details of Procedure: Under satisfactory anesthesia, the patient was positioned on the lithotripsy table. She was placed in dorsal lithotomy position with the area of the genitalia prepped and draped in usual sterile manner. Twenty-one Andorran rigid cystoscope was used to access the bladder. The right ureteric orifice was cannulated with six Andorran open-ended catheter and retrograde pyelogram was performed. Using fluoroscopy the stones were localized. Starting at low energy levels, shockwave treatment was commenced. The energy level was gradually increased and stone was fragmented. Once the treatment was completed, patient was then taken off the lithotripsy table and sent to recovery room in stable condition. Specimens: None Complications: None Findings: Stone Laterality: right Stone Location: renal, 2 mm and 3 mm lower pole stones Shocks Delivered: 1500 Max Power settin Fragmentation Quality: MAXIMO Joseph MD Apr 04, 2025 11:25
[2025-04-04] MEDS: HYDROmorphone HCL 2 MG/ML VL/or syr IV PRN (11:43)
[2025-04-04] MEDS ORDERED: ONDANSETRON HCL 4 MG/2 ML VIAL IV PRN (11:45)
[2025-04-04] MEDS ORDERED: NALOXONE HCL 0.4 MG/ML VIAL IV PRN (11:45)
[2025-04-04] MEDS ORDERED: hydrALAZINE HCL 20 MG/ML VL IV PRN (11:45)
[2025-04-04] MEDS ORDERED: FLUMAZENIL 0.1 MG/ML INJ 10ML MDV IV PRN (11:45)
[2025-04-04] MEDS: HYDROmorphone HCL 2 MG/ML VL/or syr ONE (11:46)
[2025-04-04] MEDS: fentaNYL CITRATE 100 MCG/2 ML VL IV PRN (12:32)
[2025-04-04] MEDS ORDERED: ACETAMINOPHEN IV 100 ML IV ONE (13:22)
[2025-04-04] MEDS ORDERED: FUROSEMIDE 20 MG/2 ML VIAL ONE (13:22)
[2025-04-04] MEDS: FUROSEMIDE 20 MG/2 ML VIAL IV ONE (13:27)
[2025-04-04] MEDS: ACETAMINOPHEN IV 1000 MG/100ML (10MG/ML) IV ONE (13:30)
[2025-04-04] MEDS ORDERED: ACETAMINOPHEN 325 MG TAB PO PRN (14:45)
--- NOTE | 2025-04-04 17:30 | DVHPNRES ---
Progress Note Date Seen: Apr 04, 2025 Resident Creating Document: WILMAR SHI RESIDENT Medical Necessity Reason Pt with a Central, PICC or Fol: Yes Subjective Review of Systems Sukhjinder Mcknight is a 34-year-old female with a past medical history significant for adenomyosis and gastroesophageal reflux disease (GERD) presented with complaints of severe right flank pain. She described the pain as sharp, continuous, and radiating to her thighs and buttocks, rating it 9 out of 10 in intensity. The pain is aggravated by lying down and she reports no alleviating factors. The patient stated that she visited [place] on Tuesday due to the right flank pain and associated headache. Imaging performed at that time revealed ureterolithiasis, and she was subsequently referred to Dr. Cohen for further evaluation. Earlier today, she visited Dr. Corbin clinic, where she was advised to proceed to the emergency department for admission and surgical management. PMH: adenomyosis and gastroesophageal reflux disease (GERD) PSH: Laparoscopic surgery for adenomyosis FH: No relevant family history PH/SH-denies smoking/alcoholism/drug abuse, lives with the . Home Medications: None Allergies: No known allergies PCP: [facility] Specialist relevant to admission: Urology Patient is seen today at bedside, labs and chart reviewed. Patient had extracorporeal shockwave lithotripsy done today. Postoperative patient complaining of pain, on p.r.n. pain medication. Patient is having some hematuria postoperative. Objective vital signs Vital Sign Date Time Temp Pulse Resp B/P (MAP) Pulse Ox O2 Delivery O2 Flow Rate FiO2 04/04/25 14:16 66 12 116/74 (88) 100 04/04/25 13:35 Room Air 0 98 04/04/25 13:00 98.6 98.6 Total Intake and Output 04/03/25 04/03/25 04/04/25 15:00 23:00 07:00 Intake Total 675 ml 0 ml Balance 675 ml 0 ml medications Current Medications Medications Dose Ordered Sig/Parish Route Start Time Stop Time Status Last Admin Dose Admin Ondansetron HCl 4 mg Q4HP PRN IV 04/02/25 22:30 Ceftriaxone Sodium 50 ml @ 100 mls/hr DAILY IV 04/03/25 10:00 04/03/25 10:14 100 MLS/HR Pantoprazole Sodium 40 mg DAILY IV 04/04/25 10:00 Ketorolac Tromethamine 15 mg Q6HPRN PRN IV 04/03/25 02:45 04/08/25 02:44 04/03/25 19:13 15 MG Sodium Chloride 1,000 ml @ 100 mls/hr Q10H IV 04/03/25 02:45 04/04/25 00:55 100 MLS/HR Tamsulosin HCl 0.4 mg QPM PO 04/03/25 18:00 04/03/25 18:03 0.4 MG Oxycodone HCl 10 mg ONCE PRN PO 04/04/25 11:45 Acetaminophen 650 mg Q4HP PRN PO 04/04/25 14:45 UNV Morphine Sulfate 4 mg Q4HPRN PRN IV 04/04/25 17:00 UNV Examination General examination- awake, alert, oriented HEENT- PEERLA, no acute nasal discharge Cardiovascular- S1-S2 audible, rate and rhythm regular, no murmur Respiratory- CTAB, no wheeze or rhonchi Gastrointestinal-nontender, bowel sound+. Nondistended Musculoskeletal-no acute joint swelling or tenderness or redness Lower extremity- no leg edema Neurological- cranial nerves intact, no acute dysarthria or dysphagia Psychiatry- denies depression or SI or HI Skin- no acute rash or purpura laboratory and microbiology Laboratory Tests 04/03/25 08:00 Test 04/03/25 08:00 Range/Units Serum Glucose 108 H 74-106 mg/dL Microbiology Date/Time Source Procedure Growth Status 04/03/25 13:39 Voided Urine Urine Culture - Preliminary Resulted 04/03/25 07:30 Nose MRSA Screen - Final Complete Problem List/Assessment/Plan Problem List/Assessment/Plan Assessment and plan #Nephrolithiasis # intractable right flank pain likely due to the above # suspected bacteria #Hematuria -CT abdomen-Nonobstructing right renal calculi up to 2 mm. -status post extracorporeal shock wave lithotripsy -continue ceftriaxone 1 g IV daily -continue IV fluid as prescribed -continue p.r.n. pain medication as prescribed # GERD -continue pantoprazole as prescribed # adenomyosis -follow up outpatient with the community relations specialist and manager traffic # steatosis -CT scan finding # obesity -patient is counseled about the effect of obesity on health, weight reduction, physical activity, low-fat diet ## bilateral pulmonary ground-glass nodules -9 mm right lower lobe ground-glass opacity, 11 mm right lower lobe ground-glass opacity, 1.8 cm right lower lobe sub solid nodule, -left lower lobe ground-glass nodule measuring 5 mm. -please follow up with the primary care physician/card puncher outpatient for further evaluation and care Goals of care, Code status ; discussed with >15 minutes PUD prophylaxis: Pantoprazole DVT prophylaxis: No acute indication Plan discussed with Dr. Baugh , nursing staff, Total time spent on patient evaluation, chart review, assessment and plan, discussion discussion >35 minutes Plan discussed with: Patient, Other (RN) My Orders My Orders Orders - WILMAR SHI Procedure Category Date Status Time Ketorolac Injection PHA 04/04/25 Logged (Toradol Injection) 17:15 Pantoprazole PHA 04/04/25 Logged (Protonix) 17:15 Date of Service: Apr 04, 2025 Billing Provider: GINNY BAUGH MD Common Visit Codes: [id number] INP/OBS CARE(HIGH) WILMAR SHI Apr 04, 2025 17:30 GINNY BAUGH MD Apr 11, 2025 22:15
[2025-04-04] MEDS: PANTOPRAZOLE 40 MG/10 ML VIAL INJ IV ONE (18:18)
[2025-04-04] MEDS: KETOROLAC TROMETH 30 MG/ML 1ML VIAL IV ONE (18:18)
[2025-04-04] MEDS: MORPHINE SULFATE 4 MG/ML SYR/VIAL IV PRN (19:53)
[2025-04-05] VITALS (8 sets, daily range): BP systolic 105–122; BP diastolic 61–81; PULSE 69–84; RESP 16–20; TEMP 97.5–99; O2SAT 94–97
[2025-04-05] MEDS ORDERED: ACETAMINOPHEN 325 MG TAB PO PRN
[2025-04-05] MEDS ORDERED: HYDROcodone-ACET 5/325MG TAB PO PRN
[2025-04-05] MEDS: ONDANSETRON HCL 4 MG/2 ML VIAL IV PRN (00:22)
[2025-04-05 07:01] LABS: Hematocrit 34.7 % (36.0-46.0); Hemoglobin 12.1 g/dL (12.2-16.2); Mean Corpuscular Hemoglobin 29.6 pg (28.0-32.0); Mean Corpuscular Volume 84.9 fL (80.0-100.0); Nucleated Red Blood Cells % 0.1 %
[2025-04-05 07:16] LABS: Anion Gap 11 (5-15); Carbon Dioxide 24 mmol/L (20-31); Chloride 105 mmol/L (98-107); Sodium 140 mmol/L (136-145)
[2025-04-05 07:17] LABS: Calcium 8.7 mg/dL (8.7-10.4)
[2025-04-05 07:18] LABS: Potassium 3.3 mmol/L (3.5-5.1)
[2025-04-05 07:22] LABS: BUN/Creatinine Ratio 14.5 (10.0-20.0); Magnesium 1.8 mg/dL (1.6-2.6)
[2025-04-05 07:23] LABS: Blood Urea Nitrogen 8 mg/dL (9-23); Glucose 110 mg/dL (74-106)
[2025-04-05] MEDS: POTASSIUM EFFERVESENT TAB 25 MEQ PO ONE (10:05)
--- NOTE | 2025-04-05 12:15 | DVHPNRES ---
Progress Note Date Seen: Apr 05, 2025 Resident Creating Document: WILMAR SHI RESIDENT Medical Necessity Reason Pt with a Central, PICC or Fol: Yes Subjective Review of Systems Sukhjinder Mcknight is a 34-year-old female with a past medical history significant for adenomyosis and gastroesophageal reflux disease (GERD) presented with complaints of severe right flank pain. She described the pain as sharp, continuous, and radiating to her thighs and buttocks, rating it 9 out of 10 in intensity. The pain is aggravated by lying down and she reports no alleviating factors. The patient stated that she visited [place] on Tuesday due to the right flank pain and associated headache. Imaging performed at that time revealed ureterolithiasis, and she was subsequently referred to Dr. Cohen for further evaluation. Earlier today, she visited Dr. Corbin clinic, where she was advised to proceed to the emergency department for admission and surgical management. PMH: adenomyosis and gastroesophageal reflux disease (GERD) PSH: Laparoscopic surgery for adenomyosis FH: No relevant family history PH/SH-denies smoking/alcoholism/drug abuse, lives with the . Home Medications: None Allergies: No known allergies PCP: [facility] Specialist relevant to admission: Urology Patient is seen today at bedside, labs and chart reviewed. Presents hematuria improving. On ceftriaxone. Tolerating well. . Discontinued Muse. Patient has complained of lower abdominal pain likely due to adenomyosis, ordered Gynecology and cook cashier food prep consultation. Objective vital signs Vital Sign Date Time Temp Pulse Resp B/P (MAP) Pulse Ox O2 Delivery O2 Flow Rate FiO2 04/05/25 10:05 69 18 122/71 04/05/25 09:00 99.0 97 99.0 04/05/25 08:00 Room Air* 0 21 Total Intake and Output 04/04/25 04/04/25 04/05/25 15:00 23:00 07:00 Intake Total 625 ml 200 ml 900 ml Output Total 3500 ml Balance 625 ml 200 ml -2600 ml medications Current Medications Medications Dose Ordered Sig/Parish Route Start Time Stop Time Status Last Admin Dose Admin Ondansetron HCl 4 mg Q4HP PRN IV 04/02/25 22:30 04/05/25 00:22 4 MG Ceftriaxone Sodium 50 ml @ 100 mls/hr DAILY IV 04/03/25 10:00 04/05/25 10:06 100 MLS/HR Pantoprazole Sodium 40 mg DAILY IV 04/04/25 10:00 04/05/25 10:06 40 MG Sodium Chloride 1,000 ml @ 100 mls/hr Q10H IV 04/03/25 02:45 04/05/25 10:05 100 MLS/HR Tamsulosin HCl 0.4 mg QPM PO 04/03/25 18:00 04/04/25 17:49 0.4 MG Morphine Sulfate 4 mg Q4HPRN PRN IV 04/04/25 17:00 04/05/25 10:05 4 MG Acetaminophen 650 mg Q6HP PRN PO 04/05/25 00:00 Acetaminophen/ Hydrocodone Bitart 1 tab Q6HPRN PRN PO 04/05/25 00:00 Ketorolac Tromethamine 30 mg Q8HPRN PRN IV 04/05/25 11:30 04/10/25 11:29 UNV Examination General examination- awake, alert, oriented HEENT- PEERLA, no acute nasal discharge Cardiovascular- S1-S2 audible, rate and rhythm regular, no murmur Respiratory- CTAB, no wheeze or rhonchi Gastrointestinal-nontender, bowel sound+. Nondistended Musculoskeletal-no acute joint swelling or tenderness or redness Lower extremity- no leg edema Neurological- cranial nerves intact, no acute dysarthria or dysphagia Psychiatry- denies depression or SI or HI Skin- no acute rash or purpura laboratory and microbiology Laboratory Tests 04/05/25 06:11 Test 04/05/25 06:11 Range/Units Serum Glucose 110 H 74-106 mg/dL Microbiology Date/Time Source Procedure Growth Status 04/03/25 13:39 Voided Urine Urine Culture - Final Complete 04/03/25 07:30 Nose MRSA Screen - Final Complete Problem List/Assessment/Plan Problem List/Assessment/Plan Assessment and plan #Nephrolithiasis # intractable right flank pain likely due to the above # suspected bacteria #Hematuria -CT abdomen-Nonobstructing right renal calculi up to 2 mm. -status post extracorporeal shock wave lithotripsy -continue ceftriaxone 1 g IV daily -continue IV fluid as prescribed -continue p.r.n. pain medication as prescribed # GERD -continue pantoprazole as prescribed # adenomyosis -ordered consultation for plant controller and cook cashier food prep # steatosis -CT scan finding # obesity -patient is counseled about the effect of obesity on health, weight reduction, physical activity, low-fat diet # bilateral pulmonary ground-glass nodules -9 mm right lower lobe ground-glass opacity, 11 mm right lower lobe ground-glass opacity, 1.8 cm right lower lobe sub solid nodule, -left lower lobe ground-glass nodule measuring 5 mm. -please follow up with the primary care physician/detail drafter outpatient for further evaluation and care Goals of care, Code status ; discussed with >15 minutes PUD prophylaxis: Pantoprazole DVT prophylaxis: No acute indication Plan discussed with Dr. Baugh , nursing staff, Total time spent on patient evaluation, chart review, assessment and plan, discussion discussion >35 minutes Plan discussed with: Patient, Spouse (RN), Other Date of Service: Apr 05, 2025 Billing Provider: GINNY BAUGH MD Common Visit Codes: [id number] INP/OBS CARE(HIGH) WILMAR SHI RESIDENT Apr 05, 2025 12:15 GINNY BAUGH MD Apr 11, 2025 22:16
[2025-04-05] MEDS ORDERED: KETAMINE 50mg/ML 1ml syringe IV ONE (13:08)
--- NOTE | 2025-04-05 14:50 | DVHPN2 ---
Progress Note - Dictate Date Seen: Apr 05, 2025 Medical Necessity Reason Pt with a Central, PICC or Fol: Yes The following are medically ne: Muse Catheter Medical Necessity Reason Status post right lithotripsy of small kidney stones. Subjective Patient is still complaining of right pelvic pain vital signs Vital Sign Date Time Temp Pulse Resp B/P (MAP) Pulse Ox O2 Delivery O2 Flow Rate FiO2 04/05/25 13:00 98.1 82 16 114/67 (83) 97 98.1 04/05/25 08:00 Room Air* 0 21 Total Intake and Output 04/04/25 04/04/25 04/05/25 15:00 23:00 07:00 Intake Total 625 ml 200 ml 900 ml Output Total 3500 ml Balance 625 ml 200 ml -2600 ml medications Current Medications Medications Dose Ordered Sig/Parish Route Start Time Stop Time Status Last Admin Dose Admin Ondansetron HCl 4 mg Q4HP PRN IV 04/02/25 22:30 04/05/25 00:22 4 MG Ceftriaxone Sodium 50 ml @ 100 mls/hr DAILY IV 04/03/25 10:00 04/05/25 10:06 100 MLS/HR Pantoprazole Sodium 40 mg DAILY IV 04/04/25 10:00 04/05/25 10:06 40 MG Sodium Chloride 1,000 ml @ 100 mls/hr Q10H IV 04/03/25 02:45 04/05/25 10:05 100 MLS/HR Tamsulosin HCl 0.4 mg QPM PO 04/03/25 18:00 04/04/25 17:49 0.4 MG Morphine Sulfate 4 mg Q4HPRN PRN IV 04/04/25 17:00 04/05/25 10:05 4 MG Acetaminophen 650 mg Q6HP PRN PO 04/05/25 00:00 Ketorolac Tromethamine 30 mg Q8HPRN PRN IV 04/05/25 11:30 04/10/25 11:29 objective No acute distress Muse in place laboratory and microbiology Laboratory Tests 04/05/25 06:11 Test 04/05/25 06:11 Range/Units Serum Glucose 110 H 74-106 mg/dL Problem List Right nephrolithiasis status post lithotripsy Assessment/Plan Right pelvic pain likely to be non related issue Recommend gynecology evaluation Patient is stable for discharge from Urology standpoint Plan discussed with: Patient MAXIMO RAGSDALE MD Apr 05, 2025 14:50
[2025-04-05] MEDS: KETOROLAC TROMETH 30 MG/ML 1ML VIAL IV PRN (17:54)
--- NOTE | 2025-04-05 20:36 | DVH ---
Technique: Real-time ultrasound images through the pelvis using a transabdominal transducer. For bett er evaluation of the ovaries and endometrial stripe, an endovaginal transducer was used. Indication: Adenomyosis Comparison: None Findings: The uterus measures 10.1 cm. The endometrial stripe measures 8 mm. There are no focal masses. There is no abnormal flow in the endometrium. Cervical nabothian cyst measuring approximately 4 mm. No def initive hypervascularity in the myometrium. Right ovary measures 3.1 x 2.1 x 3.9 cm. Normal flow on color doppler images. No focal masses are colleen ntified. Left ovary measures 4.3 x 2.5 x 2.4 cm. Normal flow on color doppler images. No focal masses are colleen ntified. There is no significant free fluid in the pelvis. Impression: No sonographic evidence for adenomyosis. MRI pelvis can be obtained to further evaluate.
[2025-04-06] VITALS (7 sets, daily range): BP systolic 96–156; BP diastolic 54–90; PULSE 59–87; RESP 12–20; TEMP 36.7; O2SAT 95–98
[2025-04-06 07:14] LABS: Hematocrit 34.8 % (36.0-46.0); Hemoglobin 11.4 g/dL (12.2-16.2); Mean Corpuscular Hemoglobin 28.8 pg (28.0-32.0); Mean Corpuscular Volume 87.6 fL (80.0-100.0); Nucleated Red Blood Cells % 0.0 %
[2025-04-06 07:30] LABS: Anion Gap 10 (5-15); Carbon Dioxide 24 mmol/L (20-31); Potassium 3.7 mmol/L (3.5-5.1); Sodium 142 mmol/L (136-145)
[2025-04-06 07:34] LABS: Glucose 92 mg/dL (74-106)
[2025-04-06 07:35] LABS: BUN/Creatinine Ratio 15.8 (10.0-20.0)
[2025-04-06 07:42] LABS: Blood Urea Nitrogen 9 mg/dL (9-23); Calcium 8.0 mg/dL (8.7-10.4); Chloride 108 mmol/L (98-107)
--- NOTE | 2025-04-06 09:29 | DVHINCON2 ---
Date of service: Apr 06, 2025 Referring Physician Kalina History of Present Illness HPI 34y x 3. LMP 03/29/25 control: none HPI: Admitted w/ acute Right flank pain and ureteral stone/ nephrolithiasis. s/p ESWL Pain improving, On IV fluids and IV antibiotics for complicated UTI MANAGER CLINICAL RESEARCH Hx: Patient endorses history of pelvic pain x > 3 years. s/p Laparoscopy [address] Merida at an outside hospital, was told she had Adenomyosis/endometriosis. Patient failed to f/u w/ surgeon. Was seen subsequently at [facility] and [facility] for complaints of dysmenorrhea, pelvic pain, infertility and postcoital bleeding. Pain is in RLQ, worse w/ sex, bleeds easily after intercourse. Believed to be due to IUD, but even after IUD was removed 3 years ago, continues to have similar pain. Menstrual cycles are not heavy, but irregular in frequency. States EMB was negative done at [facility] Desires to have more children. Reports Last PAP 2023 was NILM Home Meds Active Scripts Hydrocodone-Acetaminophen (Hydrocodone Bitartrate/AC 5-325 mg) 1 Tab Tab, 1 TAB PO Q6HP PRN, #20 TAB Prov:GEN BLANCO PAC 09/11/22 Reported Medications No Reported Medication (NO REPORTED MEDICATION) Ea, 0 CO UNK, EA PATIENT HAS NO REPORTED MEDICATIONS 06/09/13 Past Medical History Cardiac: No pertinent Hx Pulmonary: No pertinent Hx Central Nervous System: No pertinent Hx GI: No pertinent Hx Hemotology/Oncology: No pertinent Hx Hepatobiliary: No pertinent Hx Psychiatric: No pertinent Hx Musculoskeletal: No pertinent Hx Rheumotologic: No pertinent Hx Infectious Disease: No peritnent Hx ENT: No pertinent Hx Renal/: No pertinent Hx Endocrine: No pertinent Hx Dermatology: No pertinent Hx Past Surgical History: Other (ESWL) Family History: No pertinent Hx Smoker: No Hx (Negative) Alocohol: None Drugs: None Lives with: With family Domestic Violence: Neg Review of Systems Constitutional: No symptom reported Ears, Nose, & Throat: No symptom reported Eyes: No symptom reported Pulmonary/Respiratory: No symptom reported Cardiovascular: No symptom reported Gastrointestinal: No symptom reported Genitourinary: Hematuria, Pain Musculoskeletal: No symptom reported Skin: No symptom reported Psychiatric: No symptom reported Endocrine: No symptom reported Hemotologic/Lymphatic: No symptom reported H&P Exam Vital Signs Vital Signs Date Time Temp Pulse Resp B/P (MAP) Pulse Ox O2 Delivery O2 Flow Rate FiO2 04/06/25 05:00 97.7 72 18 113/76 (88) 95 97.7 04/05/25 20:00 Room Air* 0 21 General Appeara: Well developed, Well nourished, Normal Appearance Head Exam: Normal inspection Neck Exam: Normal inspection Eye Exam: bilateral eye Normal inspection Cardiovascular/Chest: Normal inspection Abdominal Exam: Soft Rectal Exam: Deferred Pelvic 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 Exam: Normal hearing, Normal speech Neuro/Mental St: Alert, Oriented Appearance: Appropriate appearance, Appropriate insight Skin Exam: Normal inspection Labs/Xrays PATIENT: ARACELI MURILLO ACCT: [id number] UNIT: [id number] : 1990 LOC: [facility] ROOM / BED: [address] [place] [address] AGE / SEX: 34 / F ADM STATUS: ADM IN SERVICE 26 ORDERING PHYSICIAN: JAYSON BILLY DO PROCEDURE(s): PELUS - PELVIC REASON: Adenomyosis ORDER NUMBER(s): [id number], ACCESSION NUMBER(s): [id number] Technique: Real-time ultrasound images through the pelvis using a transabdominal transducer. For better evaluation of the ovaries and endometrial stripe, an endovaginal transducer was used. Indication: Adenomyosis Comparison: None Findings: The uterus measures 10.1 cm. The endometrial stripe measures 8 mm. There are no focal masses. There is no abnormal flow in the endometrium. Cervical nabothian cyst measuring approximately 4 mm. No definitive hypervascularity in the myometrium. Right ovary measures 3.1 x 2.1 x 3.9 cm. Normal flow on color doppler images. No focal masses are identified. Left ovary measures 4.3 x 2.5 x 2.4 cm. Normal flow on color doppler images. No focal masses are identified. There is no significant free fluid in the pelvis. Impression: No sonographic evidence for adenomyosis. MRI pelvis can be obtained to further evaluate. ATED BY: MILDRED MONTANEZ MD DICTATED DATE/TIME: 04/05/252036 Labs Test 9/20/25 06:02 04/05/25 06:11 04/03/25 08:00 04/02/25 14:39 Range/Units White Blood Count 8.7 4.4-10.8 10^3/uL Red Blood Count 3.97 L 4.0-5.20 10^6/uL Hemoglobin 11.4 L 12.2-16.2 g/dL Hematocrit 34.8 L 36.0-46.0 % Mean Corpuscular Volume 87.6 80.0-100.0 fL Mean Corpuscular Hemoglobin 28.8 28.0-32.0 pg Mean Corpuscular Hemoglobin Concent 32.9 32.0-36.0 g/dL Red Cell Distribution Width 14.1 11.8-14.3 % Platelet Count 348 140-450 10^3/uL Mean Platelet Volume 7.1 6.9-10.8 fL Neutrophils (%) (Auto) 58.5 37.0-80.0 % Lymphocytes (%) (Auto) 34.2 10.0-50.0 % Monocytes (%) (Auto) 6.0 0.0-12.0 % Eosinophils (%) (Auto) 0.9 0.0-7.0 % Basophils (%) (Auto) 0.4 0.0-2.0 % Neutrophils # (Auto) 5.1 1.6-8.6 10 ^3/uL Lymphocytes # (Auto) 3.0 0.4-5.4 10 ^3/uL Monocytes # (Auto) 0.5 0-1.3 10 ^3/uL Eosinophils # (Auto) 0.1 0-0.8 10 ^3/uL Basophils # (Auto) 0 0-0.2 10 ^3/uL Nucleated Red Blood Cells 0.0 % Sodium Level 142 136-145 mmol/L Potassium Level 3.7 3.5-5.1 mmol/L Chloride Level 108 H 98-107 mmol/L Carbon Dioxide Level 24 20-31 mmol/L Anion Gap 10 5-15 Blood Urea Nitrogen 9 9-23 mg/dL Creatinine 0.57 0.550-1.02 mg/dL Glomerular Filtration Rate Calc 122 >90 mL/min BUN/Creatinine Ratio 15.8 10.0-20.0 Serum Glucose 92 74-106 mg/dL Calcium Level 8.0 L 8.7-10.4 mg/dL Magnesium Level 1.8 1.6-2.6 mg/dL Prothrombin Time 10.5 9.3-11.8 sec Prothrombin Time INR 0.99 0.9-1.15 Activated Partial Thromboplast Time 32.0 24.5-34.5 SEC Total Bilirubin 0.2 0.2-1.0 mg/dL Aspartate Amino Transferase (AST) 14 13-40 U/L Alanine Aminotransferase (ALT) 22 7-40 U/L Alkaline Phosphatase 85 46-116 U/L Total Protein 6.6 5.7-8.2 g/dL Albumin 3.9 3.2-4.8 g/dL Urine Color Light-yellow Yellow Urine Clarity Clear Clear Urine pH 5.5 5.0-9.0 Urine Specific [place] 1.019 1.001-1.035 Urine Protein Negative Negative Urine Ketones Negative Negative Urine Blood Trace H Negative /uL Urine Nitrite Negative Negative Urine Bilirubin Negative Negative Urine Urobilinogen Normal Negative mg/dL Urine Leukocyte Esterase Trace Negative /uL Urine RBC 11 0 - 4 /hpf Urine Microscopic WBC 4 0-5 /HPF Urine Squamous Epithelial Cells Few <5 /hpf Urine Bacteria Few H None Seen /hpf Urine Glucose Normal Normal mg/dL Urine Test Negative Negative Microbiology Date/Time Source Procedure Growth Status 04/03/25 13:39 Voided Urine Urine Culture - Final Complete 04/03/25 07:30 Nose MRSA Screen - Final Complete Assessment/Plan Admitting Diagnosis: Acute flank pain related to nephrolithiasis Chronic pelvic pain w/ history of Endometriosis/Adenomyosis Postcoital bleeding Plan recommend outpatient MANAGER CLINICAL RESEARCH follow up Request OP report of laparoscopy done 2023 to confirm dx of endometriosis -- A range of Tx options d/w patient including pain mgmt, hormonal Tx, [place]/ [place] Rx, surgical tx/ablation of endometriosis +/- hysterectomy -- Recommend MANAGER CLINICAL RESEARCH follow up of postcoital bleeding . DDX includes cervicitis, cervical dysplasia/ cancer, cervical ectropion, polyps MANAGER CLINICAL RESEARCH will sign off. Thank you for allowing me to participate in the care of this patient. Plan discussed with: Patient Date of Service: Apr 06, 2025 Billing Provider: JAYSON BILLY DO Common Visit Codes: CONSULT ONLY Consultation Codes: [id number] CONSULT <35MIN JAYSON BILLY DO Apr 06, 2025 09:29
[2025-04-06] MEDS ORDERED: TRAM-626 PO ×2 (13:36→16:48)
--- NOTE | 2025-04-06 14:06 | DVHDS2 ---
Discharge Summary Date of Admission Apr 02, 2025 at 22:29 Date of Discharge: Apr 06, 2025 Labs/Diagnostic Data: Laboratory Results Test 04/06/25 06:02 04/05/25 06:11 04/03/25 08:00 04/02/25 14:39 White Blood Count 8.7 10^3/uL (4.4-10.8) Red Blood Count 3.97 10^6/uL (4.0-5.20) Hemoglobin 11.4 g/dL (12.2-16.2) Hematocrit 34.8 % (36.0-46.0) Mean Corpuscular Volume 87.6 fL (80.0-100.0) Mean Corpuscular Hemoglobin 28.8 pg (28.0-32.0) Mean Corpuscular Hemoglobin Concent 32.9 g/dL (32.0-36.0) Red Cell Distribution Width 14.1 % (11.8-14.3) Platelet Count 348 10^3/uL (140-450) Mean Platelet Volume 7.1 fL (6.9-10.8) Neutrophils (%) (Auto) 58.5 % (37.0-80.0) Lymphocytes (%) (Auto) 34.2 % (10.0-50.0) Monocytes (%) (Auto) 6.0 % (0.0-12.0) Eosinophils (%) (Auto) 0.9 % (0.0-7.0) Basophils (%) (Auto) 0.4 % (0.0-2.0) Neutrophils # (Auto) 5.1 10 ^3/uL (1.6-8.6) Lymphocytes # (Auto) 3.0 10 ^3/uL (0.4-5.4) Monocytes # (Auto) 0.5 10 ^3/uL (0-1.3) Eosinophils # (Auto) 0.1 10 ^3/uL (0-0.8) Basophils # (Auto) 0 10 ^3/uL (0-0.2) Nucleated Red Blood Cells 0.0 % Sodium Level 142 mmol/L (136-145) Potassium Level 3.7 mmol/L (3.5-5.1) Chloride Level 108 mmol/L (98-107) Carbon Dioxide Level 24 mmol/L (20-31) Anion Gap 10 (5-15) Blood Urea Nitrogen 9 mg/dL (9-23) Creatinine 0.57 mg/dL (0.550-1.02) Glomerular Filtration Rate Calc 122 mL/min (>90) BUN/Creatinine Ratio 15.8 (10.0-20.0) Serum Glucose 92 mg/dL (74-106) Calcium Level 8.0 mg/dL (8.7-10.4) Magnesium Level 1.8 mg/dL (1.6-2.6) Prothrombin Time 10.5 sec (9.3-11.8) Prothrombin Time INR 0.99 (0.9-1.15) Activated Partial Thromboplast Time 32.0 SEC (24.5-34.5) Total Bilirubin 0.2 mg/dL (0.2-1.0) Aspartate Amino Transferase (AST) 14 U/L (13-40) Alanine Aminotransferase (ALT) 22 U/L (7-40) Alkaline Phosphatase 85 U/L (46-116) Total Protein 6.6 g/dL (5.7-8.2) Albumin 3.9 g/dL (3.2-4.8) Urine Color Light-yellow (Yellow) Urine Clarity Clear (Clear) Urine pH 5.5 (5.0-9.0) Urine Specific [place] 1.019 (1.001-1.035) Urine Protein Negative (Negative) Urine Ketones Negative (Negative) Urine Blood Trace /uL (Negative) Urine Nitrite Negative (Negative) Urine Bilirubin Negative (Negative) Urine Urobilinogen Normal mg/dL (Negative) Urine Leukocyte Esterase Trace /uL (Negative) Urine RBC 11 /hpf (0 - 4) Urine Microscopic WBC 4 /HPF (0-5) Urine Squamous Epithelial Cells Few /hpf (<5) Urine Bacteria Few /hpf (None Seen) Urine Glucose Normal mg/dL (Normal) Urine Test Negative (Negative) Other Laboratory Tests 04/06/25 06:02 Brief Hx & Hospital Course: Final diagnoses: Abdominal pain Chronic pelvic pain most likely due to endometriosis and adenomyosis Postcoital bleeding Right nephrolithiasis status post lithotripsy GERD Liver steatosis Obesity Hypokalemia 34-year-old female who was admitted for abdominal pain mostly in the right flank area and the right pelvic area She has chronic pain for years and had workup before was told that she probably had endometriosis and adenomyosis She also has postcoital bleeding She was seen here by Urology for the right nephrolithiasis and underwent lithotripsy retail assistant saw the patient here and recommended outpatient follow-up She takes tramadol at home The patient can be discharged home she will be given a prescription for tramadol and follow up as an outpatient with the primary care physician to 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 Condition at Discharge: Stable Final Diagnosis/Problems List Abdominal pain Discharge Disposition: Home SNF Discharge Will this Physician continue t: No Discharge Instruct/Medications Diet: Cardiac 2g Na,low cholest Activity: No Restrictions, As Tolerated Follow Up/Referral: PCP DOUG Medications: Tramadol prn Scheduled No Reported Medication (No Reported Medication), 0 CO UNK, (Reported) Scheduled PRN Hydrocodone-Acetaminophen (Hydrocodone Bitartrate/AC 5-325 mg), 1 TAB PO Q6HP PRN Tramadol HCl (Tramadol HCl), 50 MG PO Q6HP PRN Discharge Statement: "Patient was advised to return to the ER or call 911 if any headaches, dizziness, shortness of breath, chest pain, abdominal pain, bleeding, fevers, or worsening of medical condition. Patient was counseled about treatment plan, medications, possible side effects, patientverbalized understanding. All questions were answered to the best of my ability. This discharge took greater then 30 minutes in planning, reviewing documentation, counseling the patient, and discussing with other team members." ASSESSMENT ASSESSMENT Assessment Abdominal pain Date of Service: Apr 06, 2025 Billing Provider: GINNY MONIQUE MD Common Visit Codes: [id number] DISCH DAY >30min GINNY MONIQUE MD Apr 06, 2025 14:06
== END 2025-04-06 17:20 | disposition home or self-care (01) | DRG 465 ==
LOC: ER 14:13 → OVERFLOW 22:29 → WEST WING 04-03 23:49
PROVIDERS: ADMIT Internal Medicine Geriatric Medicine; ATTEND Internal Medicine Geriatric Medicine
PROC: BT1D1ZZ Fluoroscopy of Right Kidney, Ureter and Bladder using Low Osmolar Contrast (ICD-10-PCS; 2025-04-04)
PROC: 0TF3XZZ Fragmentation in Right Kidney Pelvis, External Approach (ICD-10-PCS; principal; 2025-04-04 10:24)
DX: N20.2 Calculus of kidney with calculus of ureter (principal); R71.0 Precipitous drop in hematocrit; K21.9 Gastro-esophageal reflux disease without esophagitis; E66.9 Obesity, unspecified; K57.30 Diverticulosis of large intestine without perforation or abscess without bleeding; N80.03 Adenomyosis of the uterus; G89.29 Other chronic pain; E87.6 Hypokalemia; N93.0 Postcoital and contact bleeding; N39.0 Urinary tract infection, site not specified; Z79.899 Other long term (current) drug therapy; Z68.37 Body mass index [BMI] 37.0-37.9, adult; J98.11 Atelectasis
CPT/HCPCS: 36415; 71045; 74176; 74177; 76830; 76856; 80048; 80053; 81001; 81025; 83735; 85025; 85610; 85730; 87081; 87086; 96361; 96374; 96375; A4344; G0378; J0131; J1100; J1885; J2003; J2405; J2470; J2704

== ENCOUNTER 2025-05-16 14:19 | Inpatient (IN) | payer MEDICAID ==
[~2025-05-16] VITALS: Ht 144.8 cm; Wt 77.6 kg
[~2025-05-16 14:19] MED LIST changes: -HYDR-4902 PO; +TRAM-626 PO
[2025-05-16 15:22] LABS: Hematocrit 39.7 % (36.0-46.0); Hemoglobin 13.4 g/dL (12.2-16.2); Mean Corpuscular Hemoglobin 29.0 pg (28.0-32.0); Mean Corpuscular Volume 85.8 fL (80.0-100.0); Nucleated Red Blood Cells % 0.0 %
[2025-05-16 15:41] LABS: Chloride 105 mmol/L (98-107); Potassium 3.7 mmol/L (3.5-5.1); Sodium 141 mmol/L (136-145)
[2025-05-16 15:42] LABS: Anion Gap 8 (5-15); Calcium 8.7 mg/dL (8.7-10.4); Carbon Dioxide 28 mmol/L (20-31)
[2025-05-16 15:47] LABS: BUN/Creatinine Ratio 11.9 (10.0-20.0); Glucose 81 mg/dL (74-106)
[2025-05-16 15:54] LABS: Blood Urea Nitrogen 8 mg/dL (9-23)
[2025-05-16 16:03] LABS: INR 0.98 (0.9-1.15); Partial Thromboplastin Time 29.3 SEC (24.5-34.5); Prothrombin Time 10.4 sec (9.3-11.8)
[2025-05-16 16:54] LABS: Urine Protein, UAD Negative (Negative)
--- NOTE | 2025-05-16 17:20 | DVH ---
EXAM: XY CHEST PORTABLE CLINICAL HISTORY: cp TECHNIQUE: Single AP view of the chest WID: COMPARISON: XY CHEST XRAY 1 VIEW on DOS: 04/03/25 FINDINGS: Lines and tubes: None Chest: The heart size and pulmonary vasculature is within normal limits. No pleural effusion, pneumothorax, or consolidation. The osseous structures are grossly intact. IMPRESSION: 1. No acute cardiopulmonary abnormality.
[2025-05-16] MEDS ORDERED: NITROGLYCERIN 0.4 MG SL TAB SL PRN (20:45)
[2025-05-16] MEDS ORDERED: HYDROcodone-ACET 5/325MG TAB PO PRN (20:45)
[2025-05-16 22:00] LABS: Alanine Aminotransferase 20 U/L (7-40); Albumin 4.4 g/dL (3.2-4.8); Alkaline Phosphatase 116 U/L (46-116); Bilirubin, Direct < 0.1 mg/dL (<0.3); Bilirubin, Total 0.2 mg/dL (0.2-1.0); Total Protein 7.5 g/dL (5.7-8.2)
[2025-05-16 22:10] LABS: Lipase 52 U/L (12-53)
--- NOTE | 2025-05-16 22:40 | DVH ---
CTA Chest with intravenous contrast INDICATION: Pulmonary embolism COMPARISON: Same day chest radiograph TECHNIQUE: Multidetector spiral CTA of the chest was performed of the chest with intravenous contrast . PULMONARY ANGIOGRAPHY PROTOCOL was utilized using a bolus-tracking technique centered on the main p ulmonary artery. Axial, coronal and sagittal multiplanar and MIP reformats were performed. Radiation Dose : Not provided The dose indicators for CT are the volume Computed Tomography (CT) Dose Index (CTDIvol) and the Dose Length Product (DLP), and are measured in units of mGy and mGy-cm, respectively. These indicators are not patient dose, but values generated from the CT scanner acquisition factors. The report includes radiation exposure data for exposures received during this examination. Findings: Pulmonary arteries: Technical factors adequate for assessment of the level of the segmental arteries. No filling defect is identified. Central arteries are normal in caliber. Lower neck: Unremarkable. Lungs: Small peripheral ground-glass consolidations in the posterior right upper lobe, right lower an d middle lobes, and basilar left lower lobe. Pleura: No effusion or pneumothorax within the field of view, with the lower chest excluded. Heart/Vascular Structures: Normal heart size. No pericardial effusion. Lymph Nodes: No adenopathy Musculoskeletal: No acute osseous abnormality. Soft tissues: Unremarkable. Upper abdomen: Limited visualization due to field of view. No obvious abnormality. IMPRESSION: 1. No pulmonary embolism to the level of the segmental arteries. 2. Mild multifocal pneumonia involving the [id number]-left lung.
--- NOTE | 2025-05-16 22:43 | DVH ---
Exam: CT CT AB PEL WO CON-NO ORAL OR IV History: abdominal pain Comparison Study: Concurrent CTA chest, CT abdomen/pelvis 04/02/2025 Technique: Multidetector spiral CT of the abdomen was performed from lung bases to pubic symphysis. I maging was performed without IV contrast. Axial, coronal and sagittal multiplanar reformats were obta ined from the axial data set by the technologist. Radiation Dose : 1. Abdomen/Pelvis: CTDIvol 5.92 mGy, DLP 1957.85 mGy*cm. Findings: Evaluation of solid organs is limited due to lack of intravenous contrast use. Lower Chest: Refer to comparison exam. Liver: Diffuse hypoattenuation. Gallbladder and Biliary Tree: Unremarkable Pancreas: Unremarkable. Spleen: Unremarkable. Adrenal Glands: Unremarkable. Kidneys/Ureters: No obstruction. 2 mm stone in the right inferior collecting system. Bladder: Grossly unremarkable for degree of distention. Pelvic Organs: Unremarkable Bowel: Normal caliber without wall thickening. Normal appendix. Vasculature: Unremarkable. Lymphadenopathy: No obvious adenopathy. Peritoneum: No ascites, free air, or fluid collection. Abdominal Wall: No significant hernia. Musculoskeletal: No acute findings. IMPRESSION: 1. No evidence of urinary obstruction or other acute abdominopelvic abnormality. 2. Small right nephrolith. 3. Hepatic steatosis. Radiation optimization: All CT scans at this facility use at least one of these dose optimization bull hniques: automated exposure control mA and/or kV adjustment per patient size (includes targeted exam s where dose is matched to clinical indication) or iterative reconstruction.
[2025-05-16 22:52] LABS: COVID19 ANTIGEN SOFIA FIA NEGATIVE (NEGATIVE)
[2025-05-16 22:59] LABS: Barbiturate Scree,Urine NEGATIVE (NEGATIVE); Opiate Scree,Urine NEGATIVE (NEGATIVE)
[2025-05-16 23:00] LABS: Amphetamine Screen, Urine NEGATIVE (NEGATIVE); Benzodiazephine Screen, Urine NEGATIVE (NEGATIVE); Cannabinoid Screen, Urine NEGATIVE (NEGATIVE); Cocaine Screen, Urine NEGATIVE (NEGATIVE); Phencyclidine Screen, Urine NEGATIVE (NEGATIVE)
[2025-05-17] VITALS (17 sets, daily range): BP systolic 104–137; BP diastolic 64–86; PULSE 62–86; RESP 16–20; TEMP 97.9–98.9; O2SAT 96–100
[2025-05-17] MEDS: IPRATROPIUM BROM 0.5 MG/2.5ML INH SOL NEB SCH
[2025-05-17] MEDS: IPRATROPIUM BROM 0.5 MG/2.5ML INH SOL NEB ONE (00:22)
[2025-05-17] MEDS: ALBUTEROL SULF 2.5 MG/0.5ML(0.5%) NEB SOLN NEB ONE (00:23)
[2025-05-17] MEDS: AZITHROMYCIN 500MG/ 250ML 250 ML IV ONE (01:18)
[2025-05-17] MEDS: KETOROLAC TROMETH 30 MG/ML 1ML VIAL IV ONE ×2 (01:56→22:08)
[2025-05-17 07:09] LABS: Hematocrit 37.1 % (36.0-46.0); Hemoglobin 12.7 g/dL (12.2-16.2); Mean Corpuscular Hemoglobin 29.5 pg (28.0-32.0); Mean Corpuscular Volume 85.7 fL (80.0-100.0); Nucleated Red Blood Cells % 0.0 %
[2025-05-17 07:26] LABS: Alanine Aminotransferase 16 U/L (7-40); Albumin 3.9 g/dL (3.2-4.8); Alkaline Phosphatase 83 U/L (46-116); Anion Gap 11 (5-15); BUN/Creatinine Ratio 13.0 (10.0-20.0); Bilirubin, Total 0.4 mg/dL (0.2-1.0); Carbon Dioxide 25 mmol/L (20-31); Chloride 105 mmol/L (98-107); Glucose 96 mg/dL (74-106); Potassium 3.8 mmol/L (3.5-5.1); Sodium 141 mmol/L (136-145); Total Protein 6.5 g/dL (5.7-8.2)
[2025-05-17] MEDS: ALBUTEROL SULF 2.5 MG/0.5ML(0.5%) NEB SOLN NEB PRN (07:28)
[2025-05-17 07:40] LABS: Blood Urea Nitrogen 6 mg/dL (9-23); Calcium 8.7 mg/dL (8.7-10.4)
--- NOTE | 2025-05-17 11:16 | ED.PDOC ---
SOB-HPI HPI Comments 34 year old female presenting to the ED with chief complaint of SOB. Patient reports that she has had increased SOB with associated chest pain that radiates to her back, cough, and dizziness since last Tuesday, worsening over time. Patient relays that she was seen in March at [place] for a diagnosed PE, however, she did not follow up with her specialist due to no openings and she was not prescribed any blood thinners. Patient states her PCP advised her today to come to the ED due to her symptoms and history. Patient denies any fever, chills, N/V, abdominal pain, hemoptysis, or headache. Chief Complaint: Shortness of Breath Time Seen by MD: 14:48 Primary Care Provider: [facility] Reviewed notes: Nurses Notes, Medications, Allergies Information Source: Patient Mode of Arrival: Ambulatory Severity: Moderate Timing: Days Duration: Since onset Context: At Rest PE Risk Factors: None History of: Other (PE) Prehospital treatment: None Modifying Factors: Nothing Past Medical History PAST MEDICAL HISTORY: Kidney Stones, PE, UTI'S Surgical History: Denies all surgeries HEAT SEAL OPERATOR History: No Pertinent HEAT SEAL OPERATOR History Family History Family History: Reviewed,noncontributory to illness, No family hx of DM Social History Smoker: Non-Smoker Alcohol: Denies ETOH Use Drugs: Denies Drug Use Lives In: Home Constitutional: denies: chills, diaphoresis, fatigue, fever, malaise, sweats, weakness, others EENTM: denies: blurred vision, double vision, ear bleeding, ear discharge, ear drainage, ear pain, ear ringing, eye pain, eye redness, hearing loss, mouth pain, mouth swelling, nasal discharge, nose bleeding, nose congestion, nose pain, photophobia, tearing, throat pain, throat swelling, voice changes, others Respiratory: reports: cough, shortness of breath; denies: hemoptysis, orthopnea, SOB at rest, SOB with excertion, stridor, wheezing, others Cardiovascular: reports: chest pain; denies: dizzy spells, diaphoresis, Dyspnea on exertion, edema, irregular heart beat, left arm pain, lightheadedness, palpitations, PND, syncope, others Gastrointestinal: denies: abdomen distended, abdominal pain, blood streaked bowels, constipated, diarrhea, dysphagia, difficulty swallowing, hematemesis, melena, nausea, poor appetite, poor fluid intake, rectal bleeding, rectal pain, vomiting, others Genitourinary: denies: abnormal vagina bleeding, burning, dyspareunia, dysuria, flank pain, frequency, hematuria, incontinence, pain, , vagina discharge, urgency, others Neurological: reports: dizziness; denies: fainting, headache, left sided numbness, left sided weakness, numbness, paresthesia, pre-existing deficit, right sided numbness, right sided weakness, seizure, speech problems, tingling, tremors, weakness, others Musculoskeletal: reports: back pain; denies: gout, joint pain, joint swelling, muscle pain, muscle stiffness, neck pain, others Integumetry: denies: bruises, change in color, change in hair/nails, dryness, laceration, lesions, lumps, rash, wounds, others Allergic/Immunocompromised: denies: Difficulty Healing, Frequent Infections, Hives, Itching, others Hematologic/Lymphatic: denies: anemia, blood clots, easy bleeding, easy bruising, swollen glands, others Endocrine: denies: excessive hunger, excessive sweating, excessive thirst, excessive urination, flushing, intolerance to cold, intolerance to heat, unexplained weight gain, unexplained weight loss, others Psychiatric: denies: anxiety, bipolar disorder, depression, hopeless, panic disorder, schizophrenia, sleepless, suicidal, others All Other Systems: Reviewed and Negative Physical Exam General Appearance: No Apparent Distress, Normal HEENT: Normal ENT Inspection, Pharynx Normal, TMs Normal Neck: Full Range of Motion, Non-Tender, Normal, Normal Inspection Respiratory: Chest Non-Tender, Lungs Clear, No Accessory Muscle Use, No Respiratory Distress, Normal Breath Sounds Cardiovascular: No Edema, No JVD, No Murmur, No Gallop, Normal Peripheral Pulses, Regular Rate/Rhythm Breast Exam: Deferred Gastrointestinal: No Organomegaly, Non Tender, No Pulsatile Mass, Normal Bowel Sounds, Soft Genitalia: Deferred Pelvic: Deferred Rectal: Deferred Extremities: No calf tenderness, Normal capillary refill, Normal inspection, Normal range of motion, Non-tender, No pedal edema Musculoskeletal : Apperance: Normal Neurologic: Alert, finishing wire sawyer II-XII nml as Tested, No Motor Deficits, Normal Affect, Normal Mood, No Sensory Deficits Cerebellar Function: Normal Reflexes: Normal Skin: Dry, Normal Color, Warm Lymphatic: No Adenopathy Was a procedure done? Was a procedure done?: No Differential Dx Differential Diagnosis: Bronchitis, CHF, COPD, Hypertension, Hyperventilation, Pneumonia, Pneumothorax, Sinusitis X-Ray, Labs, Meds, VS Vital Signs Date Time Temp Pulse Resp B/P (MAP) Pulse Ox O2 Delivery O2 Flow Rate FiO2 05/16/25 16:08 98.0 61 17 123/97 (106) 100 98.0 05/16/25 16:08 73 17 100 Room Air 05/16/25 15:10 82 05/16/25 14:21 97.8 84 18 135/103 98 97.8 Lab Test 05/16/25 16:14 05/16/25 15:01 Range/Units Urine Color Light-yellow Yellow Urine Clarity Clear Clear Urine pH 6.0 5.0-9.0 Urine Specific [place] 1.014 1.001-1.035 Urine Protein Negative Negative Urine Ketones Negative Negative Urine Blood Trace H Negative /uL Urine Nitrite Negative Negative Urine Bilirubin Negative Negative Urine Urobilinogen Normal Negative mg/dL Urine Leukocyte Esterase Negative Negative /uL Urine RBC 1 0 - 4 /hpf Urine Microscopic WBC < 1 0-5 /HPF Urine Squamous Epithelial Cells Few <5 /hpf Urine Bacteria None seen None Seen /hpf Urine Glucose Normal Normal mg/dL Urine Test Negative Negative White Blood Count 7.6 4.4-10.8 10^3/uL Red Blood Count 4.63 4.0-5.20 10^6/uL Hemoglobin 13.4 12.2-16.2 g/dL Hematocrit 39.7 36.0-46.0 % Mean Corpuscular Volume 85.8 80.0-100.0 fL Mean Corpuscular Hemoglobin 29.0 28.0-32.0 pg Mean Corpuscular Hemoglobin Concent 33.7 32.0-36.0 g/dL Red Cell Distribution Width 14.1 11.8-14.3 % Platelet Count 442 140-450 10^3/uL Mean Platelet Volume 6.6 L 6.9-10.8 fL Neutrophils (%) (Auto) 56.1 37.0-80.0 % Lymphocytes (%) (Auto) 36.2 10.0-50.0 % Monocytes (%) (Auto) 5.5 0.0-12.0 % Eosinophils (%) (Auto) 1.5 0.0-7.0 % Basophils (%) (Auto) 0.7 0.0-2.0 % Neutrophils # (Auto) 4.3 1.6-8.6 10 ^3/uL Lymphocytes # (Auto) 2.8 0.4-5.4 10 ^3/uL Monocytes # (Auto) 0.4 0-1.3 10 ^3/uL Eosinophils # (Auto) 0.1 0-0.8 10 ^3/uL Basophils # (Auto) 0.1 0-0.2 10 ^3/uL Nucleated Red Blood Cells 0.0 % Prothrombin Time 10.4 9.3-11.8 sec Prothrombin Time INR 0.98 0.9-1.15 Activated Partial Thromboplast Time 29.3 24.5-34.5 SEC D-Dimer, Quantitative < 0.19 0.0-0.49 mg/L FEU Sodium Level 141 136-145 mmol/L Potassium Level 3.7 3.5-5.1 mmol/L Chloride Level 105 98-107 mmol/L Carbon Dioxide Level 28 20-31 mmol/L Anion Gap 8 5-15 Blood Urea Nitrogen 8 L 9-23 mg/dL Creatinine 0.67 0.550-1.02 mg/dL Glomerular Filtration Rate Calc 118 >90 mL/min BUN/Creatinine Ratio 11.9 10.0-20.0 Serum Glucose 81 74-106 mg/dL Calcium Level 8.7 8.7-10.4 mg/dL [place] [id number] Ph: [phone] DIAGNOSTIC IMAGING Diagnostic Imaging Report : [id number] Signed PATIENT: ARACELI MURILLO ACCT: [id number] UNIT: [id number] : 1990 LOC: ER ROOM / BED: / AGE / SEX: 34 / F ADM STATUS: REG ER SERVICE 1446 ORDERING PHYSICIAN: TYRONE YEBOAH MD PROCEDURE(s): CXRP - CHEST PORTABLE REASON: cp ORDER NUMBER(s): [id number], ACCESSION NUMBER(s): [id number] EXAM: XY CHEST PORTABLE CLINICAL HISTORY: cp TECHNIQUE: Single AP view of the chest WID: COMPARISON: XY CHEST XRAY 1 VIEW on DOS: 04/03/25 FINDINGS: Lines and tubes: None Chest: The heart size and pulmonary vasculature is within normal limits. No pleural effusion, pneumothorax, or consolidation. The osseous structures are grossly intact. IMPRESSION: 1. No acute cardiopulmonary abnormality. ATED BY: KOREY JETER MD DICTATED DATE/TIME: 05/16/251716 SIGNED BY: KOREY JETER MD SIGNED DATE/TIME: 05/16/251716 CC: Time of 1ST Reevaluation: 15:45 Reevaluation 1ST: Unchanged Patient Education/Counseling: Diagnosis, Treatment Family Education/Counseling: No Family Present SEPSIS Sepsis Screen Date sepsis recognized/suspect: May 16, 2025 Time Sepsis recognized/suspect: 1423 Recent Procedure: No On Antibiotic Therapy: No Respiratory Rate >20: No Heart Rate >90: Yes Temp<36 C (96.8 F) or >38.3 C: No SBP <90 or MAP <65 mmHG: No New Acute Mental Status Change: No Is the patient on CPAP, BIPAP,: No Physician Orders Chest Portable (05/16/25 14:46) Electrocardigram (05/16/25 15:24) Vital Signs Date Time Temp Pulse Resp B/P (MAP) Pulse Ox O2 Delivery O2 Flow Rate FiO2 05/16/25 16:08 98.0 61 17 123/97 (106) 100 98.0 05/16/25 16:08 73 17 100 Room Air 05/16/25 15:10 82 05/16/25 14:21 97.8 84 18 135/103 98 97.8 Laboratory Tests Test 05/16/25 15:01 White Blood Count 7.6 10^3/uL (4.4-10.8) Departure 1 Departure Time of Disposition: 17:56 (Patient presented with chest pain that was concerning for possible STEMI, ACS, PE, Pneumonia, Muscle Strain, COPD, Diss ection. Data: 1. I ordered and reviewed the result of at least 3 labs including a CBC, BMP, and Troponin. 2. I independently interpreted the following tests: EKG which shows sinus arrhythmia and Chest X-ray which shows benign chest.Risk:This patient has a high risk of morbidity due to further diagnostic testing or treatment and may suffer from an acute cardiac or respiratory disord er. Workup reveals concern for ACS and patient should be admitted for further workup and possible expert consultation. ) Impression: Primary Impression: Acute chest pain Additional Impression: History of pulmonary embolism Disposition: ADMITTED INPATIENT Admit to: Tele Condition: Guarded Critical Care Note Critical Care Time?: Yes (35 min-critical care time only) Critical care comment: Acute chest pain Authorized and Performed by: Tyrone Yeboah MD Total critical care time: Approximately 39 minutes Due to a high probability of clinically significant, life threatening deterioration, the patient required my highest level of preparedness to intervene emergently and I personally spent this critical care time directly and personally managing the patient. This critical care time included obtaining a history; examining the patient; pulse oximetry; ordering and review of studies; arranging urgent treatment with development of a management plan; evaluation of patient's response to treatment; frequent reassessment; and, discussions with other providers. This critical care time was performed to assess and manage the high probability of imminent, life-threatening deterioration that could result in multi-organ failure. It was exclusive of separately billable procedures and treating other patients and teaching time. Please see my other sections and the rest of the note for further information on patient assessment and treatment. Stability Stability form required: No Heart Score Heart Score: Heart Score Response (Comments) Value History N/A 0 EKG N/A 0 Age N/A 0 Risk Factors N/A 0 Troponin N/A 0 Total 0 I personally scribed for TYRONE YEBOAH MD ([email or web address]) on 05/16/25 at 14:52. Electronically submitted by Van Tucker ([email or web address]). I personally scribed for TYRONE YEBOAH MD ([email or web address]) on 05/16/25 at 17:22. Electronically submitted by Beatris Dhaliwal ([email or web address]). TYRONE YEBOAH MD May 16, 2025 14:52
--- NOTE | 2025-05-17 11:26 | DVHHPRES ---
History of Present Illness Resident Creating Document: PRISCILA GALINDO History of Present Illness Patient is a 34-year-old female with past medical history of pulmonary embolism, kidney stones, UTI and adenomyosis, presented to [facility] ED with complaint of chest pain. Patient reports left-sided chest pain described as sharp, rated 8/10 in intensity, radiating to the back for the past week, worsening today. The pain is exacerbated by lying down or coughing and is associated with shortness of breath. She was previously diagnosed with a pulmonary embolism at [place] in March but did not follow up due to lack of specialist availability and was not started on anticoagulation. Her PCP advised ED evaluation today due to persistent symptoms and prior PE history. Patient denies any fever, chills, N/V, hemoptysis, or headache. Initial vitals taken in the ED are BP of 135/103 mmHg. Initial labs show D-dimer <0.19 and BUN 8. All other labs are within normal limits. Chest X-ray shows no acute cardiopulmonary abnormality. CT angiography shows mild multifocal pneumonia involving the [id number]-left lung. The patient was started on IV antibiotics and IV fluids. Patient is admitted for further evaluation and management. Past Medical History pulmonary embolism, kidney stones, UTI, adenomyosis Past Surgical History: None Family History: None Smoke: No ALCOHOL: none Drugs: None Lives: with Family Review of Systems Review of Systems Constitutional: Dizziness Eyes: No Pain, No Vision change, No Conjunctivae inflammation, No Eyelid inflammation, No Other, No Redness ENT: No Ear pain, No Ear discharge, No Nose pain, No Nose discharge, No Nose congestion, No Mouth pain, No Mouth swelling, No Throat pain, No Throat swelling, No Other Cardiovascular: Chest Pain, No Palpitations, No Orthopnea, No Paroxysmal No Dyspnea, No Edema, No Lt Headedness, No Other Respiratory: Cough, No Dry, Shortness of breath, No SOB with exertion, No Wh eezing, No Hemoptysis, No Pleuritic Pain, No Sputum, No Other Gastrointestinal: No Nausea, No Vomiting, No Abdominal Pain, No Diarrhea, No Constipation, No Melena, No Hematochezia, No Other Genitourinary: No Dysuria, No Frequency, No Incontinence, No Hematuria, No Retention, No Other Musculoskeletal: No other, No neck pain, No shoulder pain, No arm pain, back pain, No hand pain, No leg pain, No foot pain Skin: No Rash, No Lesions, No Jaundice, No Bruising, No Other Allergies: Coded Allergies: NO KNOWN ALLERGIES (Unverified , 06/09/13) Exam Vital Signs Vital Signs Date Time Temp Pulse Resp B/P (MAP) Pulse Ox O2 Delivery O2 Flow Rate FiO2 05/16/25 20:11 98.2 85 16 112/68 (83) 98 98.2 05/16/25 16:08 Room Air Exam General Appearance: Cooperative. Well developed. Well nourished. NAD Head Exam: Normal inspection Neck Exam: Normal inspection. Non-tender. Normal alignment Pulmonary/Respiratory: Chest non-tender. Clear bilateral breath sounds, no crackles, no wheezing. Cardiovascular/Chest: Regular rate and rhythm. No murmurs. No JVD. Peripheral Pulses: 2+ Radial (R). 2+ Radial (L). 2+ Pedal (R). 2+ Pedal (L) Abdominal Exam: RLQ tenderness. Normal bowel sounds. Soft. normal abdomen, no visible veins, Nontender. No hepatospenomegaly. No masses Ankle Exam: Negative ankle edema Lower extremities: Negative lower extremity edema Neuro/Mental Status: A&O x4. Coherent. Thoughts/Psych: Normal thought pattern. Appropriate mood and affect. Good judgement and insight Skin Exam: Normal inspection. Normal color. Warm. Dry Labs/Xrays Labs Test 05/16/25 16:14 05/16/25 15:01 Range/Units Urine Color Light-yellow Yellow Urine Clarity Clear Clear Urine pH 6.0 5.0-9.0 Urine Specific [place] 1.014 1.001-1.035 Urine Protein Negative Negative Urine Ketones Negative Negative Urine Blood Trace H Negative /uL Urine Nitrite Negative Negative Urine Bilirubin Negative Negative Urine Urobilinogen Normal Negative mg/dL Urine Leukocyte Esterase Negative Negative /uL Urine RBC 1 0 - 4 /hpf Urine Microscopic WBC < 1 0-5 /HPF Urine Squamous Epithelial Cells Few <5 /hpf Urine Bacteria None seen None Seen /hpf Urine Glucose Normal Normal mg/dL Urine Test Negative Negative White Blood Count 7.6 4.4-10.8 10^3/uL Red Blood Count 4.63 4.0-5.20 10^6/uL Hemoglobin 13.4 12.2-16.2 g/dL Hematocrit 39.7 36.0-46.0 % Mean Corpuscular Volume 85.8 80.0-100.0 fL Mean Corpuscular Hemoglobin 29.0 28.0-32.0 pg Mean Corpuscular Hemoglobin Concent 33.7 32.0-36.0 g/dL Red Cell Distribution Width 14.1 11.8-14.3 % Platelet Count 442 140-450 10^3/uL Mean Platelet Volume 6.6 L 6.9-10.8 fL Neutrophils (%) (Auto) 56.1 37.0-80.0 % Lymphocytes (%) (Auto) 36.2 10.0-50.0 % Monocytes (%) (Auto) 5.5 0.0-12.0 % Eosinophils (%) (Auto) 1.5 0.0-7.0 % Basophils (%) (Auto) 0.7 0.0-2.0 % Neutrophils # (Auto) 4.3 1.6-8.6 10 ^3/uL Lymphocytes # (Auto) 2.8 0.4-5.4 10 ^3/uL Monocytes # (Auto) 0.4 0-1.3 10 ^3/uL Eosinophils # (Auto) 0.1 0-0.8 10 ^3/uL Basophils # (Auto) 0.1 0-0.2 10 ^3/uL Nucleated Red Blood Cells 0.0 % Prothrombin Time 10.4 9.3-11.8 sec Prothrombin Time INR 0.98 0.9-1.15 Activated Partial Thromboplast Time 29.3 24.5-34.5 SEC D-Dimer, Quantitative < 0.19 0.0-0.49 mg/L FEU Sodium Level 141 136-145 mmol/L Potassium Level 3.7 3.5-5.1 mmol/L Chloride Level 105 98-107 mmol/L Carbon Dioxide Level 28 20-31 mmol/L Anion Gap 8 5-15 Blood Urea Nitrogen 8 L 9-23 mg/dL Creatinine 0.67 0.550-1.02 mg/dL Glomerular Filtration Rate Calc 118 >90 mL/min BUN/Creatinine Ratio 11.9 10.0-20.0 Serum Glucose 81 74-106 mg/dL Calcium Level 8.7 8.7-10.4 mg/dL SEPSIS Sepsis Screen Date sepsis recognized/suspect: May 16, 2025 Time Sepsis recognized/suspect: 1608 Recent Procedure: No On Antibiotic Therapy: No Respiratory Rate >20: No Heart Rate >90: No Temp<36 C (96.8 F) or >38.3 C: No SBP <90 or MAP <65 mmHG: No New Acute Mental Status Change: No Is the patient on CPAP, BIPAP,: No Physician Orders Chest Portable (05/16/25 14:46) Electrocardigram (05/16/25 15:24) Admit (05/16/25 20:33) Allergies (05/16/25 20:33) Code Status (05/16/25 20:33) Hydrocodone-Acet 5/325mg Tab ([place] 5/32 (05/16/25 20:45) Complete Blood Count (05/17/25 04:00) Comprehensive Metabolic Panel (05/17/25 04:00) Echo 2d Mode Cardiac Dop (05/16/25 20:33) Condition: Serious (05/16/25 20:33) Nitroglycerin Sublingual (Ntrostat Subli (05/16/25 20:45) Stat Ekg For Chest Pain (05/16/25 20:33) Notify Md Of Changes From Base (05/16/25 20:33) Account Executive Key Accounts For 24 Hours (05/16/25 20:33) Emergency Dysrhythmia Protocol (05/16/25 20:) Rhythm Strips Once Every Shift (05/16/25 20:33) Drug Screen (05/16/25 20:33) Ct Angio Chest Contrast (05/16/25 20:33) Hepatic Panel (05/16/25 20:33) Thyroid Stimulating Hormone (05/16/25 20:33) Ct Ab Pel Wo Con-No Oral Or Iv (05/16/25 20:33) Lipase (05/16/25 20:33) Albuterol Medneb (Ventolin Medneb) (05/16/25 20:45) Ipratropium Medneb (Atrovent Medneb) (05/17/25 00:00) Covid19 Antigen [place] (05/16/25 ) Rapid Influenza A&B (05/16/25 20:33) Troponin-I Hs (05/16/25 20:33) B-Type Natriuretic Peptide (05/16/25 20:33) Electrocardigram (05/16/25 20:33) Vital Signs Date Time Temp Pulse Resp B/P (MAP) Pulse Ox O2 Delivery O2 Flow Rate FiO2 05/16/25 20:11 98.2 85 16 112/68 (83) 98 98.2 05/16/25 16:08 98.0 61 17 123/97 (106) 100 98.0 05/16/25 16:08 73 17 100 Room Air 05/16/25 15:10 82 05/16/25 14:21 97.8 84 18 135/103 98 97.8 Laboratory Tests Test 05/16/25 15:01 White Blood Count 7.6 10^3/uL (4.4-10.8) Assessment/Plan Assessment/Plan Pneumonitis Pneumonia likely due to Gram +/- bacteria Intractable chest pain likely due to above CT angiography: Mild multifocal pneumonia involving the ybhrv-[id number]-cphz-left lung. Albuterol 2.5 MG NEB q6h PRN Ipratropium 0.5 MG NEB q6h Ceftriaxone IV daily Azithromycin 500 MG/250 ML IV daily Sputum culture Pain management with [place] 1 TAB PO q4h Hepatic steatosis Small right nephrolithiasis Intractable abdominal pain likely due to above Abdomen/Pelvis CT: No evidence of urinary obstruction or other acute abdominopelvic abnormality. 2 mm stone in the right inferior collecting system. Ruled out pulmonary embolism D-dimer normal CT angiography: No pulmonary embolism to the level of the segmental arteries. Diet: Regular Goals of care: Full code, discussed for >30 minutes on 05/16/25 Plan discussed with patient Plan discussed with Dr. Grady Plan discussed with: Patient, Spouse My Orders Orders - PRISCILA GALINDO RESIDENT Procedure Category Date Status Time Admit ADMIT 05/16/25 Transmitted 20:33 Allergies IVANNA 05/16/25 In Process 20:33 Code Status CODE 05/16/25 Transmitted 20:33 Hydrocodone-Acet PHA 05/16/25 Logged 5/325mg Tab ([place] 20:45 Complete Blood Count LAB 05/17/25 Verified 04:00 Comprehensive LAB 05/17/25 Verified Metabolic Panel 04:00 Echo 2d Mode Cardiac US 05/16/25 Logged DOP 20:33 Condition: Serious IVANNA 05/16/25 In Process 20:33 Nitroglycerin PHA 05/16/25 Logged Sublingual (Ntrostat 20:45 Stat Ekg For Chest IVANNA 05/16/25 In Process Pain 20:33 Notify Of Changes IVANNA 05/16/25 In Process From Base 20:33 Account Executive Key Accounts For IVANNA 05/16/25 In Process 24 Hours 20:33 Emergency Dysrhythmia IVANNA 05/16/25 In Process Protocol 20:33 Rhythm Strips Once IVANNA 05/16/25 In Process Every Shift 20:33 Drug Screen LAB 05/16/25 Logged 20:[address] 05/16/25 Logged Contrast 20:33 Hepatic Panel LAB 05/16/25 In Process 20:33 Thyroid Stimulating LAB 05/16/25 In Process Hormone 20:33 Ct Ab Pel Wo Con-No CT 05/16/25 Logged Oral Or Iv 20:33 Lipase LAB 05/16/25 In Process 20:33 Albuterol Medneb PHA 05/16/25 Logged (Ventolin Medneb) 20:45 Ipratropium Medneb PHA 05/17/25 Logged (Atrovent Medneb) 00:00 Covid19 Antigen [place] LAB 05/16/25 Logged Rapid Influenza A&B LAB 05/16/25 Logged 20:33 Troponin-I Hs LAB 05/16/25 In Process 20:33 B-Type Natriuretic LAB 05/16/25 In Process Peptide 20:33 Electrocardigram EKG 05/16/25 Logged 20:33 Date of Service: May 16, 2025 Billing Provider: EDWARD GRADY MD Common Visit Codes: [id number] INP/OBS CARE (HIGH) Secondary Visit Codes: [id number] CARE PLAN 30 MINUTES PRISCILA GALINDO RESIDENT May 16, 2025 21:29
[2025-05-17] MEDS: AZITHROMYCIN 500MG/ 250ML 250 ML IV SCH (15:40)
--- NOTE | 2025-05-17 17:04 | DVHPNRES ---
Progress Note Date Seen: May 17, 2025 Resident Creating Document: FABIÁN YEH RESIDENT Medical Necessity Reason Pt with a Central, PICC or Fol: No Subjective Review of Systems History on arrival: Joseph is a 34-year-old female with past medical history of pulmonary embolism, kidney stones, UTI and adenomyosis, presented to [facility] ED with complaint of chest pain and cough. She complained of which started on Tuesday, progressively worsened, cough was dry when it started, now producing phlegm yellow-green in color 1 cupful. Also reported coughing up blood early in the morning. Patient reports left-sided chest pain described as sharp, rated 8/10 in intensity, radiating to the back for the past week, worsening today, reproducible on palpation. The pain is exacerbated by lying down or coughing and is associated with shortness of breaths. She also complains of associated back pain, sore throat, congestion. She was previously diagnosed with a pulmonary embolism at [place] in March but did not follow up due to lack of specialist availability and was not started on anticoagulation. Per patient, her PCP advised ED evaluation today due to persistent cough, physical exam findings and prior PE history. Patient denies any fever, chills, N/V, hemoptysis, or headache. Initial labs show D-dimer <0.19 and BUN 8. All other labs are within normal limits. Chest X-ray shows no acute cardiopulmonary abnormality. CT angiography shows mild multifocal pneumonia involving the yqanm-xwnhmon-dydm-left lung. The patient was started on IV antibiotics and IV fluids. Patient is admitted for further evaluation and management. Previous hospitalization: March 2025 in [place] for pulmonary embolism PMHx: Pulmonary embolism, kidney stone, adenomyosis, ovarian cyst, recurrent UTI PSHx: Lithotripsy Family history: None Social history: Quit smoking and alcohol use 7 years ago. Before that less than 1 pack for 9 years. She quit marijuana use 8 years ago. No current alcohol, smoking or drug use reported. Lives in house with family, full code. Next to kin is . Home medication: Omeprazole Allergic history: No known allergies ROS: Constitutional: Denies weight loss, fever and chills. HEENT: Denies changes in vision and hearing. Respiratory: Cough, pleuritic chest pain, sore throat, congestion Cardiovascular: Denies chest discomfort or palpitations GI: Denies abdominal pain, nausea, vomiting and diarrhea. : Denies dysuria and urinary frequency. Musculoskeletal: Denies myalgias and joint pain Skin: Denies rash and pruritus. Neurological: Denies dizziness, headache, vision or hearing problems 05/17/2025: Patient was seen at bedside today. Patient continues to complain of cough. Objective vital signs Vital Sign Date Time Temp Pulse Resp B/P (MAP) Pulse Ox O2 Delivery O2 Flow Rate FiO2 05/17/25 13:00 98.1 71 20 114/80 (91) 96 98.1 05/17/25 12:01 Room Air* 0 21 Total Intake and Output 05/16/25 05/16/25 05/17/25 15:00 23:00 07:00 Intake Total 0 ml Balance 0 ml medications Current Medications Medications Dose Ordered Sig/Parish Route Start Time Stop Time Status Last Admin Dose Admin Acetaminophen/ Hydrocodone Bitart 1 tab Q4HP PRN PO 05/16/25 20:45 Nitroglycerin 0.4 mg Q5MINP PRN SL 05/16/25 20:45 Albuterol 2.5 mg Q6HPRN PRN NEB 05/16/25 20:45 05/17/25 12:01 2.5 MG Ipratropium [place] 0.5 mg Q6HR NEB 05/17/25 00:00 05/17/25 12:01 0.5 MG Azithromycin 250 ml @ 125 mls/hr DAILY IV 05/17/25 10:00 05/17/25 15:40 125 MLS/HR Ceftriaxone Sodium 50 ml @ 100 mls/hr DAILY@2300 IV 05/17/25 23:00 Examination General: Patient alert and oriented in person, place and time. Patient following commands. HEENT: Normocephalic, atraumatic, moist mucous membranes Respiratory/pulmonary: Rhonchi in left posterior lung olivo. Tenderness to palpation on the left side of his chest. Cardiovascular: Normal heart sounds S1 and S2 with no associated murmurs Abdomen: Right lower abdominal tenderness on light palpation, no palpable masses. Extremities: There is no peripheral edema present at the lower extremities. Peripheral Pulses: 3+ Radial (R). 3+ Radial (L). 3+ Dorsalis pedis (R). 3+ Dorsalis pedis(L) Skin: No rashes or pruritus, there is no sacral edema present at this time. Neurological: Intact cranial nerves with no focal neurologic deficits laboratory and microbiology Laboratory Tests 05/17/25 05:43 Test 05/17/25 05:43 Range/Units Serum Glucose 96 74-106 mg/dL Problem List/Assessment/Plan Problem List/Assessment/Plan Pneumonitis Pneumonia likely due to Gram +/- bacteria Intractable chest pain likely due to above CT angiography: Mild multifocal pneumonia involving the obdop-xpjqfai-wjry-left lung. Med neb treatment with albuterol, ipratropium Ceftriaxone IV daily Azithromycin 500 MG/250 ML IV daily Sputum culture pending Pain management with [place]ug[place] 1 TAB PO q4h Echocardiogram pending History of adenomyosis Hepatic steatosis Small right nephrolithiasis Intractable abdominal pain likely due to above Abdomen/Pelvis CT: No evidence of urinary obstruction or other acute abdominopelvic abnormality. 2 mm stone in the right inferior collecting system. Ruled out pulmonary embolism D-dimer normal CT angiography: No pulmonary embolism to the level of the segmental arteries. Patient is started on Eliquis 5 mg b.i.d. DIET: Regular DVT PROPHYLAXIS: Eliquis GI PROPHYLAXIS: Protonix CODE STATUS: Goals of care discussed with patient at bedside for more than 18 minutes. Full code DISPOSITION: Telemetry This medical document was created using an electronic medical record system with [employer] direct computerized dictation system. Although this document has been carefully reviewed, there may still be some phonetic and typographical errors. These areas are purely typographical due to imperfections of the software programs, and do not reflect any compromise in the patient's medical care. Patient's status and plan discussed with the patient. Case discussed with Dr. Baugh Plan discussed with: Patient, Other (Nurses, family on bedside) Date of Service: May 17, 2025 Billing Provider: GINNY BAUGH MD Common Visit Codes: [id number] INP/OBS CARE(HIGH) FABIÁN YEH RESIDENT May 17, 2025 17:04 GINNY BAUGH MD May 20, 2025 20:57
[2025-05-17] MEDS: ACETAMINOPHEN 325 MG TAB PO PRN (17:25)
[2025-05-17] MEDS: PANTOPRAZOLE 40 MG TAB PO ONE (19:56)
[2025-05-17] MEDS: APIXABAN 5 MG TAB PO SCH (22:08)
[2025-05-18] VITALS (13 sets, daily range): BP systolic 103–132; BP diastolic 65–95; PULSE 62–104; RESP 16–20; TEMP 36.8; O2SAT 96–100
--- NOTE | 2025-05-18 03:49 | DVHSR ---
APPROVED REPORT EXAM: Two-dimensional and M-mode echocardiogram with Doppler and color Doppler. Blood Pressure: 112/75 mmHg INDICATION Chest Pain RISK FACTORS Obesity: Height: 4'9, Weight: 169 DIMENSIONS LVDd4.4 (3.8-5.7cm)LA (2D) (1.9-4.0cm)Aortic Root2.5 (2.0-3.7cm) LVDs3.1 (2.5-4.0cm)LA (MM) (1.9-4.0cm)Aortic Cusp Exc1.2 (1.5-2.0cm) EF (%) 55.0 (55-70%)Rt. Atrium (1.9-4.0cm)Asc. Aorta cm IVSd0.8 (0.7-1.1cm)RV (D) (1.8-2.4cm) PWd0.8 (0.7-1.1cm) Mitral Valve MitralMitral Stenosis E wave0.69m/sMV Mean GR.mmHg A wave0.79m/sMV Peak GR.mmHg E/A ratio0.92D MVAcm2 DECEL [id number] 1/2 [place] Aortic Valve Aortic ValveAortic Stenosis V11.18m/Madan Mean GR.mmHg V21.66m/Madan Peak GR.11mmHg LVOT Diameter1.7 (1.8-2.4cm)Doppler AVA1.61cm2 Pulmonic Valve V21.17m/s Other Information Technically limited study due to body habitus.patient position. pt c/o pain with probe. Conclusion LV EF IS 65% AND IS NORMAL NORMAL VALVES NORMAL RV FUNCTION NO EFFUSION
[2025-05-18 05:06] LABS: Hematocrit 36.8 % (36.0-46.0); Hemoglobin 12.6 g/dL (12.2-16.2); Mean Corpuscular Hemoglobin 29.2 pg (28.0-32.0); Mean Corpuscular Volume 85.6 fL (80.0-100.0); Nucleated Red Blood Cells % 0.1 %
[2025-05-18 05:18] LABS: Anion Gap 9 (5-15); Carbon Dioxide 25 mmol/L (20-31); Potassium 3.7 mmol/L (3.5-5.1); Sodium 142 mmol/L (136-145)
[2025-05-18 05:22] LABS: Calcium 8.6 mg/dL (8.7-10.4); Chloride 108 mmol/L (98-107)
[2025-05-18 05:24] LABS: BUN/Creatinine Ratio 12.1 (10.0-20.0)
[2025-05-18 05:26] LABS: Blood Urea Nitrogen 7 mg/dL (9-23); Glucose 116 mg/dL (74-106)
[2025-05-18] MEDS: PANTOPRAZOLE 40 MG TAB PO SCH (06:16)
[2025-05-18] MEDS ORDERED: guaiFENesin-DM 100/10mg/5ml SYR PO PRN (11:45)
[2025-05-18] MEDS: guaiFENesin-DM 100/10mg/5ml SYR PO ONE (12:43)
[2025-05-18] MEDS ORDERED: APIX5TAB PO (14:19)
[2025-05-18] MEDS ORDERED: AZIT-185 PO (14:19)
[2025-05-18] MEDS ORDERED: DEXT1SYP9 PO (14:19)
[2025-05-18] MEDS ORDERED: PANT40T PO (14:19)
--- NOTE | 2025-05-18 14:23 | DVHDSRES ---
Discharge Summary Date of Admission Resident Creating Document: FABIÁN YEH RESIDENT May 16, 2025 at 20:33 Date of Discharge: May 18, 2025 Labs/Diagnostic Data: Laboratory Results Test 05/18/25 04:19 05/17/25 05:43 05/16/25 21:55 05/16/25 16:14 White Blood Count 5.7 10^3/uL (4.4-10.8) Red Blood Count 4.30 10^6/uL (4.0-5.20) Hemoglobin 12.6 g/dL (12.2-16.2) Hematocrit 36.8 % (36.0-46.0) Mean Corpuscular Volume 85.6 fL (80.0-100.0) Mean Corpuscular Hemoglobin 29.2 pg (28.0-32.0) Mean Corpuscular Hemoglobin Concent 34.1 g/dL (32.0-36.0) Red Cell Distribution Width 13.9 % (11.8-14.3) Platelet Count 393 10^3/uL (140-450) Mean Platelet Volume 6.9 fL (6.9-10.8) Neutrophils (%) (Auto) 48.6 % (37.0-80.0) Lymphocytes (%) (Auto) 42.1 % (10.0-50.0) Monocytes (%) (Auto) 5.7 % (0.0-12.0) Eosinophils (%) (Auto) 2.9 % (0.0-7.0) Basophils (%) (Auto) 0.7 % (0.0-2.0) Neutrophils # (Auto) 2.8 10 ^3/uL (1.6-8.6) Lymphocytes # (Auto) 2.4 10 ^3/uL (0.4-5.4) Monocytes # (Auto) 0.3 10 ^3/uL (0-1.3) Eosinophils # (Auto) 0.2 10 ^3/uL (0-0.8) Basophils # (Auto) 0 10 ^3/uL (0-0.2) Nucleated Red Blood Cells 0.1 % Sodium Level 142 mmol/L (136-145) Potassium Level 3.7 mmol/L (3.5-5.1) Chloride Level 108 mmol/L (98-107) Carbon Dioxide Level 25 mmol/L (20-31) Anion Gap 9 (5-15) Blood Urea Nitrogen 7 mg/dL (9-23) Creatinine 0.58 mg/dL (0.550-1.02) Glomerular Filtration Rate Calc 122 mL/min (>90) BUN/Creatinine Ratio 12.1 (10.0-20.0) Serum Glucose 116 mg/dL (74-106) Calcium Level 8.6 mg/dL (8.7-10.4) Total Bilirubin 0.4 mg/dL (0.2-1.0) Aspartate Amino Transferase (AST) 17 U/L (13-40) Alanine Aminotransferase (ALT) 16 U/L (7-40) Alkaline Phosphatase 83 U/L (46-116) Total Protein 6.5 g/dL (5.7-8.2) Albumin 3.9 g/dL (3.2-4.8) Influenza Type A Antigen Negative (Negative) Influenza Type B Antigen Negative (Negative) SARS-CoV-2 Antigen (Rapid) Negative (NEGATIVE) Urine Color Light-yellow (Yellow) Urine Clarity Clear (Clear) Urine pH 6.0 (5.0-9.0) Urine Specific [place] 1.014 (1.001-1.035) Urine Protein Negative (Negative) Urine Ketones Negative (Negative) Urine Blood Trace /uL (Negative) Urine Nitrite Negative (Negative) Urine Bilirubin Negative (Negative) Urine Urobilinogen Normal mg/dL (Negative) Urine Leukocyte Esterase Negative /uL (Negative) Urine RBC 1 /hpf (0 - 4) Urine Microscopic WBC < 1 /HPF (0-5) Urine Squamous Epithelial Cells Few /hpf (<5) Urine Bacteria None seen /hpf (None Seen) Urine Glucose Normal mg/dL (Normal) Urine Test Negative (Negative) Urine Opiates Screen Negative (NEGATIVE) Urine Fentanyl Screen Negative (NEGATIVE) Urine Barbiturates Screen Negative (NEGATIVE) Urine Phencyclidine Screen Negative (NEGATIVE) Urine Amphetamines Screen Negative (NEGATIVE) Urine Benzodiazepines Screen Negative (NEGATIVE) Urine Cocaine Screen Negative (NEGATIVE) Urine Cannabinoids Screen Negative (NEGATIVE) Test 05/16/25 15:01 Prothrombin Time 10.4 sec (9.3-11.8) Prothrombin Time INR 0.98 (0.9-1.15) Activated Partial Thromboplast Time 29.3 SEC (24.5-34.5) D-Dimer, Quantitative < 0.19 mg/L FEU (0.0-0.49) Direct Bilirubin < 0.1 mg/dL (<0.3) Troponin I High Sensitivity < 3 ng/L (</=34) B-Type Natriuretic Peptide 15.01 pg/mL (0-100) Lipase 52 U/L (12-53) Thyroid Stimulating Hormone (TSH) 2.10 uIU/mL (0.55-4.78) Other Laboratory Tests 05/18/25 04:19 Brief Hx & Hospital Course: History on arrival: This is a 34-year-old female with past medical history of pulmonary embolism, kidney stones, UTI and adenomyosis, presented to [facility] ED with complaint of chest pain and cough. She complained of which started on Tuesday, progressively worsened, cough was dry when it started, now producing phlegm yellow-green in color 1 cupful. Also reported coughing up blood early in the morning. Patient reports left-sided chest pain described as sharp, rated 8/10 in intensity, radiating to the back for the past week, worsening today, reproducible on palpation. The pain is exacerbated by lying down or coughing and is associated with shortness of breaths. She also complains of associated back pain, sore throat, congestion. She was previously diagnosed with a pulmonary embolism at [facility] in March but did not follow up due to lack of specialist availability and was not started on anticoagulation. Per patient, her PCP advised ED evaluation today due to persistent cough, physical exam findings and prior PE history. Patient denies any fever, chills, N/V, hemoptysis, or headache. Brief hospital course: Initial labs show D-dimer <0.19 and BUN 8. All other labs are within normal limits. Chest X-ray shows no acute cardiopulmonary abnormality. CT angiography shows mild multifocal pneumonia involving the anrfj-vfnfoou-uqgp-left lung. CT angiography shows mild multifocal pneumonia involving the kwane-mdrifny-lgnp-left lung. Abdomen/Pelvis CT showing no evidence of urinary obstruction or other acute abdominopelvic abnormality, 2 mm stone in the right inferior collecting system. The patient was started on IV azithromycin, ceftriaxone , med neb treatment with albuterol and ipratropium and IV fluids. During her stay, patient continued incentive spirometry. Patient is started on Eliquis 5 mg b.i.d. considering history of pulmonary embolism since patient was never started on anti-coagulation after discharge from [facility], and failed to follow up. Echocardiogram shows LVEF 65%, normal heart function. Patient's symptoms have improved, labs are stable. She will be discharged on oral antibiotics. Conditions treated during the stay: Pneumonitis Pneumonia likely due to Gram +/- bacteria Intractable chest pain likely due to above History of adenomyosis Hepatic steatosis Small right nephrolithiasis Intractable abdominal pain likely due to above Ruled out pulmonary embolism History of pulmonary embolism in March 2025 Plan: Complete azithromycin antibiotic course for 5 days Take as needed Robitussin for cough Continue Eliquis 5 mg b.i.d. Continue Protonix p.o. daily Continue home medications Follow with PCP in 1 week Follow-up with Hematology Oncology in outpatient clinic Operations or Procedures CTA Chest with intravenous contrast INDICATION: Pulmonary embolism COMPARISON: Same day chest radiograph TECHNIQUE: Multidetector spiral CTA of the chest was performed of the chest with intravenous contrast. PULMONARY ANGIOGRAPHY PROTOCOL was utilized using a bolus- tracking technique centered on the main pulmonary artery. Axial, coronal and sagittal multiplanar and MIP reformats were performed. Radiation Dose : Not provided The dose indicators for CT are the volume Computed Tomography (CT) Dose Index (CTDIvol) and the Dose Length Product (DLP), and are measured in units of mGy and mGy-cm, respectively. These indicators are not patient dose, but values generated from the CT scanner acquisition factors. The report includes radiation exposure data for exposures received during this examination. Findings: Pulmonary arteries: Technical factors adequate for assessment of the level of the segmental arteries. No filling defect is identified. Central arteries are normal in caliber. Lower neck: Unremarkable. Lungs: Small peripheral ground-glass consolidations in the posterior right upper lobe, right lower and middle lobes, and basilar left lower lobe. Pleura: No effusion or pneumothorax within the field of view, with the lower chest excluded. Heart/Vascular Structures: Normal heart size. No pericardial effusion. Lymph Nodes: No adenopathy Musculoskeletal: No acute osseous abnormality. Soft tissues: Unremarkable. Upper abdomen: Limited visualization due to field of view. No obvious abnormality. IMPRESSION: 1. No pulmonary embolism to the level of the segmental arteries. 2. Mild multifocal pneumonia involving the edvuh-prukpjf-twsu-left lung. Exam: CT CT AB PEL WO CON-NO ORAL OR IV History: abdominal pain Comparison Study: Concurrent CTA chest, CT abdomen/pelvis 04/02/2025 Technique: Multidetector spiral CT of the abdomen was performed from lung bases to pubic symphysis. Imaging was performed without IV contrast. Axial, coronal and sagittal multiplanar reformats were obtained from the axial data set by the technologist. Radiation Dose : 1. Abdomen/Pelvis: CTDIvol 5.92 mGy, DLP 1957.85 mGy*cm. Findings: Evaluation of solid organs is limited due to lack of intravenous contrast use. Lower Chest: Refer to comparison exam. Liver: Diffuse hypoattenuation. Gallbladder and Biliary Tree: Unremarkable Pancreas: Unremarkable. Spleen: Unremarkable. Adrenal Glands: Unremarkable. Kidneys/Ureters: No obstruction. 2 mm stone in the right inferior collecting system. Bladder: Grossly unremarkable for degree of distention. Pelvic Organs: Unremarkable Bowel: Normal caliber without wall thickening. Normal appendix. Vasculature: Unremarkable. Lymphadenopathy: No obvious adenopathy. Peritoneum: No ascites, free air, or fluid collection. Abdominal Wall: No significant hernia. Musculoskeletal: No acute findings. IMPRESSION: 1. No evidence of urinary obstruction or other acute abdominopelvic abnormality. 2. Small right nephrolith. 3. Hepatic steatosis. Radiation optimization: All CT scans at this facility use at least one of these dose optimization techniques: automated exposure control mA and/or kV adjustment per patient size (includes targeted exams where dose is matched to clinical indication) or iterative reconstruction. EXAM: XY CHEST PORTABLE CLINICAL HISTORY: cp TECHNIQUE: Single AP view of the chest WID: COMPARISON: XY CHEST XRAY 1 VIEW on DOS: 04/03/25 FINDINGS: Lines and tubes: None Chest: The heart size and pulmonary vasculature is within normal limits. No pleural effusion, pneumothorax, or consolidation. The osseous structures are grossly intact. IMPRESSION: 1. No acute cardiopulmonary abnormality. Condition at Discharge: Stable Final Diagnosis/Problems List Pneumonitis Pneumonia likely due to Gram +/- bacteria Intractable chest pain likely due to above History of adenomyosis Hepatic steatosis Small right nephrolithiasis Intractable abdominal pain likely due to above Ruled out pulmonary embolism History of pulmonary embolism in March 2025 Discharge Disposition: Home Discharge Instruct/Medications Diet: Regular Activity: No Restrictions, As Tolerated Follow Up/Referral: Follow up with hematology outpatient clinic Follow up with PCP in 1 week Medications: As per ehr New Medications: Azithromycin (Zithromax Tablet) 250 Mg Tb 500 MG PO DAILY for 5 Days, #10 TAB Apixaban Base (Eliquis) 5 Mg Tab 5 MG PO BID for 30 Days, #60 TAB Dextromethorphan-Guaifenesin (Robitussin-Dm) 10 Ml Sr 10 ML PO Q4HP PRN for 10 Days, SYP Pantoprazole Sodium Sesquihydr (Pantoprazole Sodium) 40 Mg Tab 40 MG PO DAILY@0600 for 30 Days, TAB Continued Medications: No Reported Medication (No Reported Medication) Ea 0 CO UNK, EA PATIENT HAS NO REPORTED MEDICATIONS Tramadol HCl (Tramadol HCl) 50 Mg Tab 50 MG PO Q6HP PRN, #30 TAB Scheduled Apixaban Base (Eliquis), 5 MG PO BID Azithromycin (Zithromax Tablet), 500 MG PO DAILY No Reported Medication (No Reported Medication), 0 CO UNK, (Reported) Pantoprazole Sodium Sesquihydr (Pantoprazole Sodium), 40 MG PO DAILY@0600 Scheduled PRN Dextromethorphan-Guaifenesin (Robitussin-Dm), 10 ML PO Q4HP PRN Tramadol HCl (Tramadol HCl), 50 MG PO Q6HP PRN Tramadol HCl (Tramadol HCl), 50 MG PO Q6HP PRN Discharge Statement: "Patient was advised to return to the ER or call 911 if any headaches, dizziness, shortness of breath, chest pain, abdominal pain, bleeding, fevers, or worsening of medical condition. Patient was counseled about treatment plan, medications, possible side effects, patientverbalized understanding. All questions were answered to the best of my ability. This discharge took greater then 30 minutes in planning, reviewing documentation, counseling the patient, and discussing with other team members." ASSESSMENT ASSESSMENT Assessment Pneumonitis Pneumonia likely due to Gram +/- bacteria Intractable chest pain likely due to above History of adenomyosis Hepatic steatosis Small right nephrolithiasis Intractable abdominal pain likely due to above Ruled out pulmonary embolism History of pulmonary embolism in March 2025 Date of Service: May 18, 2025 Billing Provider: GINNY MONIQUE MD Common Visit Codes: [id number] DISCH DAY >30min FABIÁN YEH RESIDENT May 18, 2025 14:23 GINNY MONIQUE MD May 20, 2025 20:57
[2025-05-18] MEDS: APIXABAN 5 MG TAB PO ONE (18:16)
[2025-05-18] MEDS ORDERED: TRAM-626 PO (18:33)
--- NOTE | 2025-05-22 08:47 | ECG ---
[facility] Test Date: 2025-05-16 Test Time: 15:10:20 Pat Name: ARACELI MURILLO Department: Room: 0233 Gender: F Grocery Bagger: AMY : 1990 Requested By: TYRONE KING Order Number: [id number] Reading MD: Measurements Intervals [place] Rate: 82 P: 40 TX: 141 QRS: 51 QRSD: 78 T: 29 QT: 371 QTc: 434 Interpretive Statements Sinus rhythm Baseline wander in lead(s) I,II,aVR,aVL,aVF Please click the below link to view image of tracing.
== END 2025-05-18 18:47 | disposition home or self-care (01) | DRG 137 ==
LOC: ER 14:19 → OVERFLOW 20:33 → TELE-EAST 23:53 → EAST 05-18 13:03
PROVIDERS: ATTEND Emergency Medicine
DX: J15.69 Pneumonia due to other Gram-negative bacteria (principal); K76.0 Fatty (change of) liver, not elsewhere classified; J98.4 Other disorders of lung; N20.0 Calculus of kidney; Z20.822 Contact with and (suspected) exposure to COVID-19; J15.9 Unspecified bacterial pneumonia; Z87.442 Personal history of urinary calculi; Z86.711 Personal history of pulmonary embolism; Z87.891 Personal history of nicotine dependence
CPT/HCPCS: 36415; 71045; 71275; 74176; 80048; 80053; 80076; 80307; 81001; 81025; 83690; 83880; 84443; 84484; 85025; 85379; 85610; 85730; 87070; 87081; 87205; 87426; 87804; 93306; 94640; 99291; G0378; J1885